=== PATIENT | female | born 1990 | race Caucasian/White ===

== ENCOUNTER 2021-09-04 21:31 | Emergency (ER) | payer OTHER, SELFPAY ==
--- NOTE | ~2021-09-04 | XR_ITS ---
EXAMINATION: XR foot LT min 3V, XR ankle LT 2V CLINICAL INFORMATION: Reason for Exam foot COMPARISON: None. TECHNIQUE: AP, oblique and lateral views of the left foot AP and oblique views of the left ankle FINDINGS: No acute fracture or dislocation. Ankle mortise is congruent. Talar dome intact. Osseous alignment maintained. Soft tissues unremarkable. No radiopaque foreign body. XR/XR foot LT min 3V IMPRESSION: No acute fracture or dislocation.
--- NOTE | ~2021-09-04 | XR_ITS ---
EXAMINATION: XR foot LT min 3V, XR ankle LT 2V CLINICAL INFORMATION: Reason for Exam foot COMPARISON: None. TECHNIQUE: AP, oblique and lateral views of the left foot AP and oblique views of the left ankle FINDINGS: No acute fracture or dislocation. Ankle mortise is congruent. Talar dome intact. Osseous alignment maintained. Soft tissues unremarkable. No radiopaque foreign body. XR/XR ankle LT 2V IMPRESSION: No acute fracture or dislocation.
[2021-09-04 21:41] VITALS: BP 134/85; PULSE 95; RESP 16; TEMP 36.6; O2SAT 99; BMI 47.9
--- NOTE | 2021-09-04 22:09 | ED.LOWEXIN ---
HPI - Extremity Injury (Lower) General Chief Complaint: Extremity Injury, Lower Stated Complaint: Fall/Foot pain Time Seen by Provider: 09/04/21 22:07 Source: patient Limitations: no limitations History of Present Illness HPI Narrative: This is a 30-year-old female who 1 week ago tonight slipped on her porch and landed funny on her left foot, and since then she has had pain to her left dorsal foot, worse with ambulation, with pain present even at rest while lying down. Patient has had little bit of swelling. She said she tried to get seen this week but was unable to. Pain is moderately severe, aching. She denies any numbness or tingling to her foot or toes. She denies any ankle injury. She denies any other injuries such as head or neck, chest or back. Related Data Allergies Allergy/AdvReac Type Severity Reaction Status Date / Time adhesive Allergy Hives Verified 09/04/21 21:49 apple Allergy Anaphylaxis Verified 09/04/21 21:49 Penicillins Allergy Hives Verified 09/04/21 21:49 Sulfa (Sulfonamide Allergy Hives Verified 09/04/21 21:49 Antibiotics) Review of Systems Musculoskeletal: Musculoskeletal: Reports as per HPI Neurologic: Denies Sensory deficit (Neuro) [facility] Past Medical History Medical History (Updated 09/04/21 @ 23:06 by Jin Trujillo MD) Asthma HTN (hypertension) Qualitative platelet disorder Social History Social History Advance Directives: No Advance Directives Information Provided: No Patient : No Physical Exam Vital Signs: Vital Signs: Last Vital Signs Temp 97.8 F 09/04/21 21:41 Pulse 95 09/04/21 21:41 Resp 16 09/04/21 21:41 BP 134/85 09/04/21 21:41 Pulse Ox 99 09/04/21 21:41 Body Mass Index 47.9 Const: General: no acute distress Orientation/consciousness: patient oriented x3 HENMT: Head: Yes normal to inspection Eyes: General: appearance normal, both eyes and all related structures Neck: Neck: Yes full ROM Resp: Effort & Inspection: normal respiratory effort Auscultation: clear to auscultation bilaterally Cardio: Rate: regular rate Rhythm: regular rhythm Heart sounds: S1 normal heart sound present and S2 normal heart sound present Neuro: General: patient oriented x3 Sensory Exam: No Sensory deficit (Neuro) Extrem: Other: Left dorsal foot with tenderness especially over the 1st metatarsal and medial foot. No tenderness over the lateral foot or over the ankle. No notable swelling or ecchymosis or deformity. Does neurovascular intact. MDM - Extremity Injury (Lower) MDM Narrative Medical decision making narrative: Patient with injury to her left foot a week ago, has been walking on it but has had persistent pain, that she might have injured a tendon, has negative x-rays, some tenderness on exam but no ecchymosis or deformity. Likely sprain/contusion. Recommend using a postop shoe, taking ibuprofen for pain and inflammation, orthopedic follow-up as needed Imaging Data Left foot x-ray: Radiologist's impression: IMPRESSION: No acute fracture or dislocation.? Left ankle x-ray: Radiologist's impression: IMPRESSION: No acute fracture or dislocation.? Discharge Plan Discharge Clinical Impression: Foot sprain Patient Disposition: Home, Self-Care Instructions: Foot Sprain (ED) Additional Instructions: Use ibuprofen for pain, 600 mg (3 of the regular 200 mg tablets) every 6-8 hours with food. Use the postop shoe for ambulation for the next week. Follow-up with orthopedics if you still have ongoing pain after that. Referrals: Rory Billings MD [Physician] - 10 days (as needed) Interventions: ED Discharge Assessment Last Done: 09/04/21 23:28 Discharge Date/Time: 09/04/21 23:30
[2021-09-04] MEDS: Ibuprofen 600 MG TABLET PO (22:49)
== END 2021-09-04 23:30 | disposition home or self-care (01) ==
PROVIDERS: Emergency Provider Emergency Medicine
DX: S93.602A Unspecified sprain of left foot, initial encounter (principal); M79.672 Pain in left foot; W01.0XXA Fall on same level from slipping, tripping and stumbling without subsequent striking against object, initial encounter; Y93.9 Activity, unspecified; Y92.9 Unspecified place or not applicable; Y99.9 Unspecified external cause status; Z79.899 Other long term (current) drug therapy
CPT/HCPCS: 73600; 73630; 99283; 99284

== ENCOUNTER 2022-05-16 18:53 | Emergency (ER) | payer OTHER, SELFPAY ==
--- NOTE | ~2022-05-16 | XR_ITS ---
EXAMINATION: XR KNEE, RIGHT CLINICAL INFORMATION: Twisted right knee. Pain. COMPARISON: None TECHNIQUE: AP, lateral, and both oblique views of the right knee. FINDINGS: Bones and soft tissues are normal. No fracture or joint effusion. Alignment is anatomic. Joint spaces are well maintained. No abnormal soft tissue calcification. XR/XR knee RT 3V IMPRESSION: Normal right knee.
[2022-05-16 19:25] VITALS: BP 164/110; PULSE 123; RESP 18; TEMP 36.6; O2SAT 99; BMI 49.3
[2022-05-16] MEDS: predniSONE 20 MG TABLET 40 MG PO (22:44)
--- NOTE | 2022-05-16 22:46 | ED.LOWEXIN ---
HPI - Extremity Injury (Lower) General Chief Complaint: Extremity Injury, Lower Stated Complaint: knee inj/swollen Time Seen by Provider: 05/16/22 21:25 Source: patient Mode of arrival: ambulatory Limitations: no limitations History of Present Illness HPI Narrative: 31 yold female presents to the ED for right knee pain. Patient states at 2pm a hot dog Fork fell unto her right and cause her right knee to twist into an awkward position. She states ever since having right knee pain. Patient denies hitting head or loss of consciosuness. Patieint denies any other trauma. Related Data Previous Rx's Medication Instructions Recorded oxycodone 5 mg capsule 5 mg PO TID PRN pain 3 days #9 caps 05/16/22 prednisone 20 mg tablet 60 mg PO DAILY 5 days #15 tabs 05/16/22 Allergies Allergy/AdvReac Type Severity Reaction Status Date / Time adhesive Allergy Hives Verified 09/04/21 21:49 apple Allergy Anaphylaxis Verified 09/04/21 21:49 Penicillins Allergy Hives Verified 09/04/21 21:49 Sulfa (Sulfonamide Allergy Hives Verified 09/04/21 21:49 Antibiotics) [facility] Past Medical History Medical History (Updated 05/16/22 @ 22:58 by HIPOLITO Dietz) Asthma HTN (hypertension) Qualitative platelet disorder Social History Social History Advance Directives: No Advance Directives Information Provided: No Physical Exam Vital Signs: Vital Signs: Last Vital Signs Temp 97.8 F 05/16/22 19:25 Pulse 123 H 05/16/22 19:25 Resp 18 05/16/22 19:25 BP 164/110 H 05/16/22 19:25 Pulse Ox 99 05/16/22 19:25 O2 Del Method 05/16/22 19:25 BMI result Body Mass Index 49.3 Const: General: cooperative, healthy appearing, comfortable, no acute distress, well developed, alert, awake and Physically active Orientation/consciousness: patient oriented x3 HEENT: Head: Yes normal to inspection, Yes No palpable skull fracture present, Yes normocephalic, Yes atraumatic, No abrasion, No Acrocyanosis present, No Villareal's sign, No contusion, No cranial bruits, No hematoma, No laceration, No occipital foramen tenderness, No palpable skull fracture, No raccoon eyes, No scalp lesion, No scalp tenderness, No Temporal artery tenderness present and No periorbital ecchymosis Eyes: General: appearance normal, both eyes and all related structures Neck: Neck: Yes normal visual inspection, Yes full ROM, Yes no lymphadenopathy, Yes no meningeal signs, Yes trachea midline, Yes supple, No anterior neck swelling and No tender Chest: Chest palpation & inspection: normal inspection of the chest and normal palpation of entire chest wall Resp: Effort & Inspection: normal respiratory effort and able to speak in complete sentences Auscultation: clear to auscultation bilaterally Cardio: Jugular venous distension: no JVD Heart sounds: S1 normal heart sound present and S2 normal heart sound present GI: Inspection: Yes normal to inspection and No abdominal wall ecchymosis Palpation (GI): Soft to palpation, not firm, nontender, no guarding and not rigid : General: No CVA tenderness and Yes no CVA tenderness Back/Spine/Pelvis: Back: no CVA tenderness, No CVA tenderness and No back tenderness Skin: General skin exam: no rashes or lesions noted and elasticity normal Neuro: General: patient oriented x3, gait normal, no meningeal signs and CN's II-XI intact bilaterally Cranial nerves: Yes CN's II-XII intact bilaterally Extrem: General: Yes normal to inspection and Yes full ROM Knee images: 1. Positive for abrasion. Positive for right medial and lateral knee tenderness on palpation and range of motion. Negative for elasticity. Popliteal pulses intact. Risks of right lower extremity normal. Foot pulses intact. Neuro exam motor exam intact. Psych: Appearance: grossly normal, well kempt and not disheveled Course Course Course Narrative: Right knee x-ray ordered. Reevaluation(s) Reevaluation #1: Knee x-ray normal. Due to history of right knee meniscus tear patient informed to follow-up primary care provider and again MRI to make sure there is no meniscus tear. Patient states up-to-date with Tdap. Patient placed in knee wrap and crutches. Patient will be discharged with narcotics due to patient not able to take NSAIDs due to platelet disorder. Time: 22:53 MDM - Extremity Injury (Lower) MDM Narrative Medical decision making narrative: Right knee sprain. Abrasion Discharge Plan Discharge Clinical Impression: Knee sprain, Abrasion Patient Disposition: Home, Self-Care Instructions: Knee Sprain (ED), Abrasion (ED), R.I.C.E. Treatment (ED) Additional Instructions: Return to the ED any knee swelling, redness, hotness, pus discharge from wound, fever, chills, leg swelling calf pain, bluish black discoloration of lower extremity, or any other concerning symptoms. Recommend follow-up with primary care provider for MRI to evaluate for possible meniscus tear due to history of meniscus tear in the past in the same knee. Prescriptions: New prednisone 20 mg tablet 60 mg PO DAILY 5 Days Qty: 15 0RF oxycodone 5 mg capsule 5 mg PO TID PRN (Reason: pain) 3 Days Qty: 9 0RF Rx Instructions: Partial Fill upon patient request. Stand Alone Forms: Work/School Release Interventions: ED Discharge Assessment Last Done: 05/16/22 23:05 Discharge Date/Time: 05/16/22 23:05 Print Language: Moroccan
== END 2022-05-16 23:05 | disposition home or self-care (01) ==
PROVIDERS: Emergency Provider Internal Medicine
DX: S83.91XA Sprain of unspecified site of right knee, initial encounter (principal); S80.211A Abrasion, right knee, initial encounter; X50.1XXA Overexertion from prolonged static or awkward postures, initial encounter; Y93.89 Activity, other specified; Y92.009 Unspecified place in unspecified non-institutional (private) residence as the place of occurrence of the external cause; Y99.9 Unspecified external cause status
CPT/HCPCS: 73562; 99282; 99283

== ENCOUNTER 2023-01-27 18:32 | Emergency (ER) | payer OTHER, SELFPAY ==
--- NOTE | ~2023-01-27 | XR_ITS ---
EXAMINATION: XR HAND, LEFT CLINICAL INFORMATION: Pain in the fifth finger. COMPARISON: None available. TECHNIQUE: PA, lateral, and oblique views of the left hand. FINDINGS: The bones and soft tissues are normal. No fracture. Alignment is anatomic. Joint spaces are maintained. No erosions or soft tissue calcifications. XR/XR hand LT 2V IMPRESSION: Normal left hand.
--- NOTE | 2023-01-27 18:54 | ED.GENADULT ---
HPI - General Adult General Chief complaint: Extremity Injury, Upper Stated complaint: finger discoloration/No inj Time Seen by Provider: 01/27/23 19:03 Source: patient Mode of arrival: ambulatory Limitations: no limitations History of Present Illness HPI narrative: Patient is a 32 year old assigned female at with no reported medical history presenting to the emergency department today with a bruised left 5th finger. Patient states that she was sitting at her desk when her left 5th finger randomly started to bruise. Patient states that this has happened to her thumb previously but it has been years. Patient denies any dizziness, lightheadedness, abdominal pain, nausea, vomiting, fever, chills, blurry vision, double vision, loss of vision, chest pain, difficulty breathing, shortness of breath, back pain, night sweats, pain with urination, increased urinary frequency, increased urinary urgency, blood in her urine or stool, syncope or a near syncopal episode, recent trauma or falls, bowel incontinence, bladder incontinence, bowel retention, bladder retention, or any other complaints at this time. Onset (ago): hour(s) Location: left (5th finger) Radiation: non-radiation Severity: mild Relieving factors: none Exacerbating factors: none Associated symptoms: denies other symptoms Treatments prior to arrival: none Related Data Previous Rx's Medication Instructions Recorded oxycodone 5 mg capsule 5 mg PO TID PRN pain 3 days #9 caps 05/16/22 prednisone 20 mg tablet 60 mg PO DAILY 5 days #15 tabs 05/16/22 Allergies Allergy/AdvReac Type Severity Reaction Status Date / Time adhesive Allergy Hives Verified 09/04/21 21:49 apple Allergy Anaphylaxis Verified 09/04/21 21:49 Penicillins Allergy Hives Verified 09/04/21 21:49 Sulfa (Sulfonamide Allergy Hives Verified 09/04/21 21:49 Antibiotics) Review of Systems Constitutional: Constitutional: Reports no additional constitutional complaints, Denies chills, Denies fever(s) and Denies night sweats Eyes: Eyes: Reports no additional eye complaints, Denies blurry vision, Denies change in vision, Denies diplopia, Denies eye discharge, Denies loss of vision and Denies eye pain ENT: Denies dizziness Cardiovascular: Cardiovascular: Reports no additional cardiovascular complaints, Denies chest pain, Denies lightheadedness, Denies Loss of Consciousness and Denies dyspnea Respiratory: Respiratory: Reports no additional respiratory complaints and Denies dyspnea Gastrointestinal: Gastrointestinal: Reports no additional gastrointestinal complaints, Denies abdominal pain, Denies melena, Denies hematochezia, Denies change in bowel habits and Denies change in stool character Genitourinary: Genitourinary: Denies hematuria, Denies urinary frequency, Denies dysuria, Denies urinary incontinence, Denies urinary hesitancy and Denies urinary urgency Musculoskeletal: Musculoskeletal: Reports no additional musculoskeletal complaints, Denies numbness and Denies tingling Comments: left 5th finger bruising Neurologic: Denies dizziness, Denies loss of vision, Denies numbness and Denies tingling Psychiatric: Psychiatric: Reports no additional psychiatric complaints Endocrine: Endocrine: Reports no additional endocrine complaints Hematologic/Lymphatic: Hematologic/Lymphatic: Reports no additional hematologic/lymphatic complaints Allergic/Immunologic: Allergic/Immunologic: Reports no additional allergic/immunologic complaints PMFSH Past Medical History Attestation statement: The following information was validated with the patient. Source: old records reviewed and nursing notes reviewed Medical History Asthma HTN (hypertension) Qualitative platelet disorder Social History Social History Advance Directives: No Advance Directives Information Provided: Yes Physical Exam ED Vital Signs: Vital Signs - 24 hr 01/27/23 18:55 Temperature 97.9 F Pulse Rate 92 Respiratory Rate 16 Blood Pressure 146/86 H Pulse Oximetry 97 Oxygen Delivery Method Room Air BMI result Body Mass Index 47.7 Const General: cooperative, no acute distress, alert and awake Nutritional Appearance: well nourished Orientation/consciousness: patient oriented x3 Limitations: no limitations [facility] Head: Yes normal to inspection and Yes atraumatic Ears: hearing grossly normal bilaterally and external ears normal General nose exam: Normal external nose present, no nasal discharge noted and no epistaxis Face and sinus: Yes normal facial exam, No abrasion and No laceration Mouth: Normal oral and palatal mucosa present, no drooling and no muffled voice Eyes General: appearance normal, both eyes and all related structures Periorbital: periorbital findings normal Eyelids: Yes eyelids normal Conjunctivae: conjunctivae normal Pupils: Equal, round and reactive pupils present EOM: EOMs intact bilaterally Neck Neck: Yes normal visual inspection, Yes full ROM and Yes no lymphadenopathy Chest Chest palpation & inspection: normal inspection of the chest Resp Effort & Inspection: normal respiratory effort and able to speak in complete sentences GI Inspection: Yes normal to inspection Skin Other: bruising along the medial aspect of the left 5th finger Neuro General: patient oriented x3 and moves all extremities Cranial nerves: Yes Equal, round and reactive pupils present Cognition (Neuro): normal cognition Motor exam (neuro): 5/5 motor strength present throughout Sensory Exam: Normal double simultaneous stimulation for sensation Coordination: [id number] test normal Extrem General: Yes full ROM and Yes capillary refill normal Psych Appearance: grossly normal Mental Status: mental status grossly normal Affect: normal affect Attitude: cooperative Thought process: Normal thought process present Thought content: Normal thought content present Insight: Good insight present (Psych) Medical Decision Making Medical Decision Making MDM Narrative: Patient is a 32 year old assigned female at with no reported medical history presenting to the emergency department today with bruising to the left 5th finger. Patient's physical exam showed mild bruising to the medial aspect of the left 5th finger. Patient's left hand x-ray showed no acute process. I explained my physical exam findings as well as all test results to the patient . I answered all questions asked by the patient. I stressed the importance of the patient taking her medication as prescribed. I stressed the importance of the patient following up with her primary care provider. I stressed the importance of the patient returning to the emergency department immediately if her symptoms were to worsen or if she were to develop any dizziness, shortness of breath, difficulty breathing, chest pain, blurry vision, loss of vision, nausea, vomiting, abdominal pain, fever, chills, back pain, or any other complaints. Patient verbalized agreement and understanding with this treatment plan and discharge. Differential Diagnosis Differential Diagnoses: The differential diagnosis associated with the presentation includes raynauds Independent Interpretation I performed an independent interpretation of an: Plain X-Ray Interpretation: My interpretation is in agreement with the radiologist's impression of this imaging study. EXAMINATION: XR HAND, LEFT CLINICAL INFORMATION: Pain in the fifth finger.? COMPARISON: None available.? TECHNIQUE: PA, lateral, and oblique views of the left hand. FINDINGS: The bones and soft tissues are normal. No fracture. Alignment is anatomic. Joint spaces are maintained. No erosions or soft tissue calcifications.? XR/XR hand LT 2V IMPRESSION: Normal left hand. Dictated By: Chuy Lopez MD Signed By: Electronically signed by Chuy Lopez MD 01/27/232024 Discharge Plan Discharge Clinical Impression: Achenbach's syndrome Patient Disposition: Home, Self-Care Additional Instructions: These episodes are likely to continue happening at variable intervals. It could be days, weeks, months, or even years before the next event. Follow up with your primary care provider. Return to the emergency department immediately if your symptoms worsen or if you develop any dizziness, shortness of breath, difficulty breathing, chest pain, blurry vision, loss of vision, nausea, vomiting, abdominal pain, fever, chills, back pain, or any other complaints. Prescriptions: No Action prednisone 20 mg tablet 60 mg PO DAILY 5 Days Qty: 15 0RF oxycodone 5 mg capsule 5 mg PO TID PRN (Reason: pain) 3 Days Qty: 9 0RF Rx Instructions: Partial Fill upon patient request. Referrals: [facility] Family Medicine [Provider Group] (Call to establish and follow up with a primary care provider. If you already have a primary care provider, please follow up with them.) [facility] [Provider Group] (Call to establish and follow up with a primary care provider. If you already have a primary care provider, please follow up with them.) [facility] [Provider Group] (Call to establish and follow up with a primary care provider. If you already have a primary care provider, please follow up with them.) Stand Alone Forms: Work/School Release Interventions: ED Discharge Assessment Last Done: 01/27/23 19:45 Discharge Date/Time: 01/27/23 19:45 Print Language: Australian
[2023-01-27 18:55] VITALS: BP 146/86; PULSE 92; RESP 16; TEMP 36.6; O2SAT 97; BMI 47.7
== END 2023-01-27 19:45 | disposition home or self-care (01) ==
LOC: HO.ED 19:43
PROVIDERS: Emergency Provider Emergency Medicine
DX: M79.645 Pain in left finger(s) (principal); Z79.899 Other long term (current) drug therapy
CPT/HCPCS: 73120; 99282; 99283

== ENCOUNTER → 2023-05-18 10:06 | Outpatient (BNVA) | payer OTHER, SELFPAY | PROVIDERS: Visit Provider Physician Assistant Surgical ==

== ENCOUNTER 2023-06-15 12:43 | Outpatient (AMB) | payer OTHER, SELFPAY ==
--- NOTE | 2023-06-15 12:53 | A.OFFVIS_ITS ---
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 Her goal is to feel healthier. She reports first being concerned about her weight since childhood. DENNIS 5, Has therapist sees every 2-3 weeks and psychiatric provider. . She has tried multiple methods of weight loss including diets and exercise since childhood without permanent results. She lives with [facility]. She works 5 days per week from 9a - 5pm Her best friend had surgery with us recently. She wakes at: 7;15 am, weekends 10am, bed at 9pm. Takes her a long time to fall asleep, and i f wakes up difficulty falling back to sleep. Believes she sleeps on average 4-5 hours. Breakfast: 8 am decaf coffee - creamer. skips 3-4 days. 8am - DD bagel with cream cheese. Lunch: 12 - 1:30 pm - leftovers. water or [employer] Dinner: 5-7pm - pasta, meat and vegetables (daily). water After dinner: eats in the middle of the night when she can't fall asleep - crackers, rice cakes. Other snacks: not on work days. Binge snacker - multiple times per day. Liquids: 1-2 soda per week. No fruit juice, Alcohol intake: none, tobacco: none, marijuana: none Exercise: gym - now restarting. treadmill in past for 300 calories in 1 hour. Last mammogram: never Last pap smear: up to mariely control method: IUD DENNIS:5 ESS:14 GERD:0 QOL:123 PFSH Medical History (Updated 06/15/23 @ 13:33 by Natalie Coates PA-C) Asthma HTN (hypertension) Qualitative platelet disorder Surgical History History of placement of ear tubes Hx of adenoidectomy Hx of eye surgery Hx of knee surgery Hx of tonsillectomy Hx of wisdom tooth extraction Family History Mother Hypertension Heart problem Borderline personality disorder PTSD (post-traumatic stress disorder) Depression Anxiety Father Depression Anxiety Sister No problems noted. Sister Asthma OCD (obsessive compulsive disorder) Depression Anxiety Brother Anxiety Depression Tourette's Brother Anxiety Depression Social History (Updated 05/18/23 @ 10:33 by Deandra Justice [facility]) Alcohol intake: never Patient Tobacco Use Status: Never used Tobacco Physical Exam Const General: cooperative, no acute distress and well developed Nutritional Appearance: obese Orientation/consciousness: patient oriented x3 HEENT Other: erythema both cheeks Head: Yes normal to inspection Neck Neck: Yes normal visual inspection Thyroid: Thyroid normal Resp Effort & Inspection: normal respiratory effort Auscultation: clear to auscultation bilaterally Cardio Rate: regular rate Rhythm: regular rhythm Heart sounds: S1 normal heart sound present, S2 normal heart sound present and no murmurs GI Inspection: No distended and Yes obesity Palpation (GI): Soft to palpation, nontender and no guarding Skin General skin exam: no rashes or lesions noted and other (warm and dry) Wounds: no wounds Hair: normal Neuro General: patient oriented x3 Extrem General: Yes no pedal edema and Yes no calf tenderness Psych Attitude: cooperative Thought process: Normal thought process present Thought content: Normal thought content present Insight: Good insight present (Psych) Judgement: Good judgement present (Psych) Assessment & Plan Assessment & Plan (1) Morbid obesity: Code(s): E66.01 - Morbid (severe) obesity due to excess calories Plan: This is a 32 yo woman with morbid obesity and likely KELSEY, who will start SWL program to prepare for bariatric surgery. Blood work, h pylori , CXR, ECG, Abd ULS and UGI have been ordered. She is being scheduled for RD and BH initial consultations. She will start SWL classes and watch at 3 classes before her next appt with Joseline. Pt has alot of night eating behaviors along with multiple episodes of waking - will check SS for KELSEY. We discussed different coping mechanisms for non- food coping mechansisms during the night. She will make a list for herself. 1. Adequate sleep of 7-8 hours per night discussed, see above 2. Healthy meal plan - st All meals/MR's need to take 20 minutes to complete decaf coffee with a few ounces of protein shake 9 am - 30 gram shake 12 pm - bar or yogurt 3 pm- shake 6 pm- dinner of 6 oz lean protein, 8 oz vegetable, 1 serving fruit 8pm - bar in 10 pieces Exercise - Cardio 4 d week = treadmill at speed 2.5, incline 2-7- to burn 350 calories 3 d/ wk - 20/20/40 lbs The importance of avoiding and breast feeding for at least 18 months after bariatric surgery was discussed in the information session and was reinforced today. Pt will purchase body composition analyzer (recommended list given to patient) and weight herself weekly. Next appt with me in 3 weeks. Text me with any questions and weekly weights. Patient is morbidly obese and is not considered stable at this time.?I spent a total of 60 minutes reviewing/updating records, examining the patient and counseling the patient on weight management as detailed above. (2) HTN (hypertension): Code(s): I10 - Essential (primary) hypertension (3) Asthma: Code(s): J45.909 - Unspecified asthma, uncomplicated (4) PTSD (post-traumatic stress disorder): Code(s): F43.10 - Post-traumatic stress disorder, unspecified (5) Depression with anxiety: Code(s): F41.8 - Other specified anxiety disorders (6) Daytime somnolence: Code(s): R40.0 - Somnolence (7) Eczema: Code(s): L30.9 - Dermatitis, unspecified Orders: Orders Vitamin B12 and Folate Today E66.01 - Morbid (severe) obesity due to excess calories, I10 - Essential (primary) hypertension, J45.909 - Unspecified asthma, uncomplicated, R40.0 - Somnolence, Z01.818 - Encounter for other preprocedural examination Comprehensive Met. Panel Today E66.01 - Morbid (severe) obesity due to excess calories, I10 - Essential (primary) hypertension, J45.909 - Unspecified asthma, uncomplicated, R40.0 - Somnolence, Z01.818 - Encounter for other preprocedural examination C Reactive Protein Today E66.01 - Morbid (severe) obesity due to excess calories, I10 - Essential (primary) hypertension, J45.909 - Unspecified asthma, uncomplicated, R40.0 - Somnolence, Z01.818 - Encounter for other preprocedural examination Ferritin Today E66.01 - Morbid (severe) obesity due to excess calories, I10 - Essential (primary) hypertension, J45.909 - Unspecified asthma, uncomplicated, R40.0 - Somnolence, Z01.818 - Encounter for other preprocedural examination Hemoglobin A1c Today E66.01 - Morbid (severe) obesity due to excess calories, I10 - Essential (primary) hypertension, J45.909 - Unspecified asthma, uncomplicated, R40.0 - Somnolence, Z01.818 - Encounter for other preprocedural examination Insulin Today E66.01 - Morbid (severe) obesity due to excess calories, I10 - Essential (primary) hypertension, J45.909 - Unspecified asthma, uncomplicated, R40.0 - Somnolence, Z01.818 - Encounter for other preprocedural examination IRON PROFILE Today E66.01 - Morbid (severe) obesity due to excess calories, I10 - Essential (primary) hypertension, J45.909 - Unspecified asthma, uncomplicated, R40.0 - Somnolence, Z01.818 - Encounter for other preprocedural examination Lipid Panel Today E66.01 - Morbid (severe) obesity due to excess calories, I10 - Essential (primary) hypertension, J45.909 - Unspecified asthma, uncomplicated, R40.0 - Somnolence, Z01.818 - Encounter for other preprocedural examination PTHI Today E66.01 - Morbid (severe) obesity due to excess calories, I10 - Essential (primary) hypertension, J45.909 - Unspecified asthma, uncomplicated, R40.0 - Somnolence, Z01.818 - Encounter for other preprocedural examination TSH reflex Free T4 Today E66.01 - Morbid (severe) obesity due to excess calories, I10 - Essential (primary) hypertension, J45.909 - Unspecified asthma, uncomplicated, R40.0 - Somnolence, Z01.818 - Encounter for other preprocedural examination Vitamin A Today E66.01 - Morbid (severe) obesity due to excess calories, I10 - Essential (primary) hypertension, J45.909 - Unspecified asthma, uncomplicated, R40.0 - Somnolence, Z01.818 - Encounter for other preprocedural examination Vitamin B1 Today E66.01 - Morbid (severe) obesity due to excess calories, I10 - Essential (primary) hypertension, J45.909 - Unspecified asthma, uncomplicated, R40.0 - Somnolence, Z01.818 - Encounter for other preprocedural examination Vitamin D 25-OH Total Today E66.01 - Morbid (severe) obesity due to excess calories, I10 - Essential (primary) hypertension, J45.909 - Unspecified asthma, uncomplicated, R40.0 - Somnolence, Z01.818 - Encounter for other preprocedural examination Zinc Today E66.01 - Morbid (severe) obesity due to excess calories, I10 - Essential (primary) hypertension, J45.909 - Unspecified asthma, uncomplicated, R40.0 - Somnolence, Z01.818 - Encounter for other preprocedural examination ECG 12 lead EKG Today E66.01 - Morbid (severe) obesity due to excess calories, I10 - Essential (primary) hypertension, J45.909 - Unspecified asthma, uncomplicated, R40.0 - Somnolence, Z01.818 - Encounter for other preprocedural examination FL upper GI w air Today E66.01 - Morbid (severe) obesity due to excess calories, I10 - Essential (primary) hypertension, J45.909 - Unspecified asthma, uncomplicated, R40.0 - Somnolence, Z01.818 - Encounter for other preprocedural examination Complete Blood Count Auto Diff Today E66.01 - Morbid (severe) obesity due to excess calories, I10 - Essential (primary) hypertension, J45.909 - Unspecified asthma, uncomplicated, R40.0 - Somnolence, Z01.818 - Encounter for other preprocedural examination RT home sleep study Today E66.01 - Morbid (severe) obesity due to excess calories, I10 - Essential (primary) hypertension, J45.909 - Unspecified asthma, uncomplicated, R40.0 - Somnolence, Z01.818 - Encounter for other preprocedural examination H Pylori Breath Test Today E66.01 - Morbid (severe) obesity due to excess calories, I10 - Essential (primary) hypertension, J45.909 - Unspecified asthma, uncomplicated, R40.0 - Somnolence, Z01.818 - Encounter for other preprocedural examination US abdomen comp w elastography Today E66.01 - Morbid (severe) obesity due to excess calories, I10 - Essential (primary) hypertension, J45.909 - Unspecified asthma, uncomplicated, R40.0 - Somnolence, Z01.818 - Encounter for other preprocedural examination XR chest 2V Today E66.01 - Morbid (severe) obesity due to excess calories, I10 - Essential (primary) hypertension, J45.909 - Unspecified asthma, uncomplicated, R40.0 - Somnolence, Z01.818 - Encounter for other preprocedural examination Referrals Behavioral Health Referral E66.01 - Morbid (severe) obesity due to excess calories, I10 - Essential (primary) hypertension, J45.909 - Unspecified asthma, uncomplicated, R40.0 - Somnolence, Z01.818 - Encounter for other preprocedural examination Nutrition/Dietitian Referral E66.01 - Morbid (severe) obesity due to excess calories, I10 - Essential (primary) hypertension, J45.909 - Unspecified asthma, uncomplicated, R40.0 - Somnolence, Z01.818 - Encounter for other preprocedural examination Coding Level of Care Code New Pt Level 5 (72620) Diagnoses Morbid obesity E66.01 HTN (hypertension) I10 Asthma J45.909 PTSD (post-traumatic stress disorder) F43.10 Depression with anxiety F41.8 Daytime somnolence R40.0 Eczema L30.9
[2023-06-15 13:00] VITALS: BP 153/83; PULSE 93; TEMP 37.1; O2SAT 95; BMI 48.9
== END 2023-06-15 14:08 | disposition home or self-care (01) ==
PROVIDERS: Visit Provider Physician Assistant
DX: E66.01 Morbid (severe) obesity due to excess calories (principal); Z68.42 Body mass index [BMI] 45.0-49.9, adult; I10 Essential (primary) hypertension; L30.9 Dermatitis, unspecified
CPT/HCPCS: 99205

== ENCOUNTER 2023-06-15 12:43 | Outpatient (REF) | payer OTHER, SELFPAY ==
[2023-06-18 11:43] LABS: H Pylori Breath Test Negative (Negative)
== END 2023-06-15 12:44 | disposition home or self-care (01) ==
LOC: HO.LNP 12:43
PROVIDERS: Visit Provider Physician Assistant
DX: Z01.818 Encounter for other preprocedural examination (principal); E66.01 Morbid (severe) obesity due to excess calories; I10 Essential (primary) hypertension; J45.909 Unspecified asthma, uncomplicated; R40.0 Somnolence
CPT/HCPCS: 83013; 99202; 99211

== ENCOUNTER 2023-06-30 11:29 | Outpatient (REF) | payer OTHER, SELFPAY ==
--- NOTE | ~2023-06-30 | US_ITS ---
EXAMINATION: US COMPLETE ABDOMEN WITH LIVER ELASTOGRAPHY CLINICAL INFORMATION: Morbid obesity. COMPARISON: None available. TECHNIQUE: Real-time imaging of the abdominal viscera. Noninvasive ultrasound liver fibrosis assessment is performed using Lala ElastPQ point quantification shear wave elastography (2D-SWE) with a C5-2 MHz transducer. Multiple elastography samples are obtained. FINDINGS: PANCREAS: Largely obscured by overlapping bowel gas. ABDOMINAL AORTA: The proximal, middle, and distal aortic segments are normal in caliber. INFERIOR VENA CAVA: Visualized portions are normal. LIVER: There is hepatomegaly. The liver demonstrates normal contour and increased echogenicity. No focal lesion or intrahepatic biliary duct dilatation. The right lobe measures 19.3 cm in length. The left lobe measures 15.4 cm in length. Portal flow is towards the liver (hepatopetal). Shear wave liver elastography median stiffness is 1.62 m/s (reference: normal median stiffness is 1.3 m/s or less). IQR/median stiffness to assess sampling precision is 0.14 (reference: good quality data set is IQR/median stiffness of 0.15 or less). GALLBLADDER: Normal. The gallbladder is physiologically distended without evidence of stones, sludge, polyps, wall thickening or pericholecystic fluid. COMMON BILE DUCT: Normal in caliber measuring 0.5 cm in diameter. RIGHT KIDNEY: Normal. No hydronephrosis. No renal calculi or focal parenchymal lesions. The kidney measures 12.8 cm in maximum dimension. LEFT KIDNEY: Normal. No hydronephrosis. No renal calculi or focal parenchymal lesions. The kidney measures 11.2 cm in maximum dimension. SPLEEN: Normal. The spleen measures 10.3 cm in maximum dimension. FREE FLUID: None. US/US abdomen comp w elastography IMPRESSION: 1. There is generalized increase in hepatic echotexture, consistent with fatty infiltration or hepatocellular disease. Please correlate clinically. No focal hepatic mass or intrahepatic biliary dilatation is seen. 2. There is hepatomegaly. 3. Liver elastography: In the absence of other known clinical signs, measurements rule out compensated advanced chronic liver disease. If there are known clinical signs, further testing may be needed for confirmation. 4. Technically limited ultrasound examination of the pancreas. REFERENCE: Society of Radiologists in Ultrasound Liver Stiffness Thresholds (2020): LIVER STIFFNESS THRESHOLDS: *Liver Stiffness equal or less than 1.3 m/s: High probability of being normal. *Liver Stiffness less than 1.7 m/s: In the absence of other known clinical signs, rules out compensated advanced chronic liver disease. *Liver Stiffness 1.7-2.1 m/s: Suggestive of compensated advanced chronic liver disease but need further test for confirmation. *Liver Stiffness over 2.1 m/s: Rules in compensated advanced chronic liver disease. *Liver Stiffness over 2.4 m/s: Suggestive of clinically significant portal hypertension. QUALITY OF DATA SET: *IQR/Median value equal or less than 0.15 implies a quality data set. *IQR/Median value over 0.15 implies a poor quality data set. SIGNIFICANT CHANGE FROM PRIOR EXAM: Significant change if liver stiffness measurement is 10% or greater from prior exam. OTHER CONSIDERATIONS: The stage of liver fibrosis may be overestimated in the setting of acute hepatitis, liver inflammation, elevated liver function tests, hepatic vascular congestion, obstructive cholestasis, non-fasting state, and infiltrative diseases such as amyloidosis and lymphoma. In some patients with NAFLD, the liver stiffness thresholds for compensated advanced chronic liver disease may be lower. In causes other than viral hepatitis and NAFLD, liver stiffness thresholds are not well established.
== END 2023-06-30 11:30 | disposition home or self-care (01) ==
LOC: HO.US 11:29
PROVIDERS: Visit Provider Physician Assistant
DX: Z01.818 Encounter for other preprocedural examination (principal); E66.01 Morbid (severe) obesity due to excess calories; I10 Essential (primary) hypertension
CPT/HCPCS: 76705; 76981

== ENCOUNTER 2023-07-04 09:21 | Outpatient (REF) | payer OTHER, SELFPAY ==
--- NOTE | ~2023-07-04 | FL_ITS ---
EXAMINATION: XR FLUOROSCOPY UPPER GI WITH AIR CLINICAL INFORMATION: Preoperative bariatric surgery. COMPARISON: None relevant. TECHNIQUE: Standard technique air contrast upper GI examination was performed with thick and thin barium and effervescent granules. Numerous fluoroscopic spot images were obtained. FINDINGS: The esophagus has normal caliber and contour. There is no mucosal abnormality, mass, or stricture. No evidence of hiatus hernia or GE reflux was evident. Stomach demonstrates normal contour and fold appearance. No ulceration or mass identified. Images of the duodenal bulb and sweep appear normal with normal fold patterns. The proximal small bowel has a normal jejunal fold pattern. There was no delay of contrast passage. FLUOROSCOPY TIME: 2.6 minutes 23 spot images obtained. DOSE AREA PRODUCT: 45.203 uGy-m2 (microgray-meter squared) FL/FL upper GI w air IMPRESSION: Normal upper GI examination.
--- NOTE | ~2023-07-04 | XR_ITS ---
EXAMINATION: XR CHEST CLINICAL INFORMATION: Obesity COMPARISON: None available. TECHNIQUE: 2 views of the chest were obtained. FINDINGS: No significant abnormality is noted involving the heart, lungs, mediastinum, bony thorax or soft tissues. XR/XR chest 2V IMPRESSION: Unremarkable examination.
== END 2023-07-04 09:22 | disposition home or self-care (01) ==
LOC: HO.XRAY 09:21
PROVIDERS: Visit Provider Physician Assistant
DX: Z01.818 Encounter for other preprocedural examination (principal); E66.01 Morbid (severe) obesity due to excess calories; I10 Essential (primary) hypertension; J45.909 Unspecified asthma, uncomplicated; R40.0 Somnolence
CPT/HCPCS: 71046; 74246

== ENCOUNTER → 2023-07-04 09:23 | Outpatient (BNV) | payer OTHER, SELFPAY | PROVIDERS: Visit Provider Radiology Diagnostic Radiology | DX: E66.01 Morbid (severe) obesity due to excess calories (principal) | CPT/HCPCS: 74246 ==

== ENCOUNTER 2023-07-06 16:43 | Outpatient (AMB) | payer OTHER, SELFPAY ==
--- NOTE | 2023-07-06 15:34 | A.OFFVIS_ITS ---
Intake Intake Visit Reasons: VIDEO F/U SWL Allergies adhesive Allergy (Verified 06/15/23 12:58) Hives Penicillins Allergy (Verified 06/15/23 12:58) Hives Sulfa (Sulfonamide Antibiotics) Allergy (Verified 06/15/23 12:58) Hives HPI HPI Comments History of Present Illness Details This is the patients second appt for SWL. Starting weight was 312.4 lbs. Has not weighted herself in 10 days due to moving, and scale packed away. Meal plan: 8am - coffee with premeir shake in it 9am - finish the shake 12 farhat - yogurt or drinkable yogurt 3pm - mostly skips this shake 6:30 pm - chicken or ground turkey and vegetables with Mrs Stokes sometimes has something after dinner Exercise plan: hasn't started because she fell down the stairs Pre op work up completed as follows: SWL classes - BH appts - Dian 07/21 appts - not scheduled H pylori - negative Labs and ECG - not done yet CXR - negative UGI - normal ULS- fatty liver, hepatomegaly - R 19.3, L 15.4 cms - 08/07 [facility] Medical History (Updated 06/15/23 @ 13:33 by Natalie Coates PA-C) Asthma HTN (hypertension) Qualitative platelet disorder Surgical History History of placement of ear tubes Hx of adenoidectomy Hx of eye surgery Hx of knee surgery Hx of tonsillectomy Hx of wisdom tooth extraction Family History Mother Hypertension Heart problem Borderline personality disorder PTSD (post-traumatic stress disorder) Depression Anxiety Father Depression Anxiety Sister No problems noted. Sister Asthma OCD (obsessive compulsive disorder) Depression Anxiety Brother Anxiety Depression Tourette's Brother Anxiety Depression Social History Alcohol intake: never Patient Tobacco Use Status: Never used Tobacco Assessment & Plan Assessment & Plan (1) Morbid obesity: Code(s): E66.01 - Morbid (severe) obesity due to excess calories Plan: Pt will weigh herself and text me the result. Needs to not skip meals and MR's - must have 2 shakes, 1 MR and 1 meal per day. Must start exercising - for now TBP sitting videos 4-5 d/ week until her foot completely heals. Must start to watch classes and finish before appt with Joseline - which is being rescheduled now. Will get labs and ECG done this week. Next appt with me in 3 weeks. Patient is still morbidly obese and is not considered stable at this time. I spent 30 minutes in total speaking with the patient via video conference counseling , reviewing records and charting in patients chart. . (2) Daytime somnolence: Code(s): R40.0 - Somnolence Plan: SS 08/07 Telehealth Telehealth Location of provider rendering services: practice address Location of patient: address on file Telehealth method: video Patient verbally consented to treatment: Yes Patient verbally consented to billing insurance company: Yes Patient informed of any privacy concerns related to visit: Yes Coding Level of Care Code Tele Est Pt Level 4 (77499) Diagnoses Morbid obesity E66.01 Daytime somnolence R40.0
== END 2023-07-06 16:56 | disposition home or self-care (01) ==
LOC: HO.HBS 16:43
PROVIDERS: Visit Provider Physician Assistant
DX: E66.01 Morbid (severe) obesity due to excess calories (principal); Z68.42 Body mass index [BMI] 45.0-49.9, adult; R40.0 Somnolence
CPT/HCPCS: 99214

== ENCOUNTER → 2023-07-06 16:43 | Outpatient (BNVA) | payer OTHER, SELFPAY | PROVIDERS: Visit Provider Physician Assistant ==

== ENCOUNTER 2023-12-19 12:02 | Emergency (ER) | payer OTHER, SELFPAY ==
--- NOTE | ~2023-12-19 | US_ITS ---
EXAMINATION: US ABDOMEN LIMITED CLINICAL INFORMATION: Right upper quadrant pain. COMPARISON: None available. TECHNIQUE: Real-time imaging of the right upper quadrant abdominal viscera. FINDINGS: PANCREAS: Normal head and body, the tail is obscured by bowel gas. LIVER: The liver is normal in size. The liver contour is normal. There is slight diffuse increased liver parenchymal echogenicity, consistent with mild hepatic steatosis. No focal hepatic lesion. There is no intrahepatic biliary duct dilatation seen. GALLBLADDER: Normal. The gallbladder is physiologically distended without evidence of stones, sludge, polyps, wall thickening or pericholecystic fluid. The patient reports tenderness in the area of the gallbladder, however, there are no findings to suggest cholecystitis. COMMON BILE DUCT: Normal in caliber measuring 5 cm in diameter. RIGHT KIDNEY: Normal. No hydronephrosis. No renal calculi or focal parenchymal lesions. The kidney measures 13.9 cm in maximum dimension. FREE FLUID: None. US/US abdomen limited IMPRESSION: 1. Mild hepatic steatosis. 2. The patient reports tenderness in the area of the gallbladder, however, there are no findings to suggest cholecystitis.
--- NOTE | ~2023-12-19 | US_ITS ---
EXAMINATION: US , LIMITED CLINICAL INFORMATION: Abdominal pain. 4 months . COMPARISON: None available. TECHNIQUE: Transabdominal scanning of the pelvis was performed. FINDINGS: There is a single live intrauterine with a breech lie, anterior placenta and adequate amniotic fluid. movement and cardiac activity are seen seen. heart rate is 153 bpm. There is a normal placental attachment. LMP is 08/25/2023. Based on today's measurements, estimated gestational age 16 weeks 4 days which corresponds to the estimated gestational age based on the patient's LMP. Estimated date of delivery is 05/31/2024. Estimated weight is 5 ounces (146 g) which is in the 18th percentile. The cervix is long and closed. US/US OB limited IMPRESSION: Single live intrauterine with estimated gestational age of 16 weeks 4 days. This corresponds to an estimated of delivery of 05/31/2024. Normal movement and cardiac activity are observed.
[2023-12-19 12:32] VITALS: BP 133/85; PULSE 96; RESP 20; TEMP 37; O2SAT 96; BMI 49.6
--- NOTE | 2023-12-19 12:33 | ED_ITS ---
HPI - Abdominal Pain General Chief Complaint: Abdominal Pain Stated Complaint: R Side Pain Vomiting 16 Wks Preg Time Seen by Provider: 12/19/23 21:30 Source: patient Mode of arrival: ambulatory History of Present Illness HPI narrative: 33-year-old female who presents, at approximately 16 weeks, states that on Monday she began having right upper quadrant pain that radiates into the back with vomiting and diarrhea and states that the vomiting has persisted. Patient states that she is currently followed up at [facility], she states that she presented to OB floor and was informed that this was not a issue in that she should seek help at a regular ER. She denies any vaginal bleeding or unexplained loss of fluid she has right upper quadrant pain. Related Data Home Medications Medication Instructions Recorded Confirmed dextroamphetamine-amphetamine 5 mg 5 mg PO DAILY 05/18/23 tablet (Adderall) doxycycline hyclate 20 mg tablet 20 mg PO BID 05/18/23 fluticasone propionate 50 2 spray intranasal DAILY 05/18/23 mcg/actuation nasal spray,suspension (Children's Flonase Allergy Relief) levocetirizine 5 mg tablet (Xyzal) 5 mg PO DAILY 05/18/23 Allergies Allergy/AdvReac Type Severity Reaction Status Date / Time adhesive Allergy Hives Verified 12/19/23 12:35 Penicillins Allergy Hives Verified 12/19/23 12:35 Sulfa (Sulfonamide Allergy Hives Verified 12/19/23 12:35 Antibiotics) Review of Systems Review of Systems Pertinent positives and negatives as stated in HPI PMFSH Past Medical History Source: nursing notes reviewed Medical History Qualitative platelet disorder HTN (hypertension) Asthma Surgical History Hx of eye surgery Hx of knee surgery Hx of wisdom tooth extraction Hx of adenoidectomy Hx of tonsillectomy History of placement of ear tubes Family History Family History Mother Hypertension Heart problem Borderline personality disorder PTSD (post-traumatic stress disorder) Depression Anxiety Father Depression Anxiety Sister No problems noted. Sister Asthma OCD (obsessive compulsive disorder) Depression Anxiety Brother Anxiety Depression Tourette's Brother Anxiety Depression Social History Social History Alcohol intake: never Patient Tobacco Use Status: Never used Tobacco Smoked in Last 30 Days: No Use of substances other than those prescribed or required for medical reasons: No Advance Directives: No Patient : Yes Physical Exam ED Vital Signs: Vital Signs - 24 hr 12/19/23 12:32 12/19/23 21:30 12/19/23 22:00 Temperature 98.6 F Pulse Rate 96 94 90 Respiratory Rate 20 18 18 Blood Pressure 133/85 138/79 142/78 H Pulse Oximetry 96 99 98 Oxygen Delivery Method Room Air Room Air BMI result Body Mass Index 49.6 VITAL SIGNS: Reviewed. GENERAL: Elevated BMI, Well developed, well nourished, in no acute distress. HEAD: Normocephalic/atraumatic EYES: PERRLA, EOMI EARS: Ext canals without abnormality NOSE: Nares patent bilateral OROPHARYNX: no oral lesions noted, posterior pharynx clear NECK: Supple, no adenopathy LUNGS: Normal breath sounds. No adventitious sounds or accessory muscle use. SpO2<99> CARDIOVASCULAR: Regular rate and rhythm without noted murmurs, no JVD or lower extremity edema. ABDOMEN: Soft, right upper quadrant pain,, non-distended with bowel sounds. MUSCULOSKELETAL: No tenderness, deformities, or effusions noted on gross inspection. EXTREMITIES: No cyanosis, clubbing or edema. SKIN: Inspection of the skin reveals no rashes NEUROLOGIC: Alert and oriented x 4. Strength and sensation to light touch were grossly intact x 4. Course Course Course Narrative: This is a rapid medical exam. Deferred additional HPI, ROS, PE to primary provider. 33 yo female with history of HTN, platelete disorder, asthma here with complaints of RUQ abdominal pain with radiation to the back with nausea/vomiting/diarrhea since Monday. Currently 4 months . HARMAN 05/31. Followed by [facility]. No vaginal bleeding or lower abdominal pain. Normal to date. Will obtain labs, UA, abdominal US, viral testing. VSS Medical Decision Making Medical Decision Making [facility] Narrative: 2234: 33-year-old female with history and clinical presentation, DDX: Cholecystitis, appendicitis, renal colic and lower clinical suspicion for pancreatitis. I reviewed all investigations and there is a noted leukocytosis with a left shift and no anemia or thrombocytopenia. Chemistry indices are negative for PETEY/electrolyte or liver enzyme derangements. Beta [id number] an Ob ultrasound demonstrates IUP at 16.4 days/FHR-153. Urinalysis is negative UTI or hematuria. Viral testing is negative for COVID-19/influenza. Abdominal ultrasound does not show evidence to suggest acute cholecystitis but clinical exam and history contradict that. Started IV fluids, administered antiemetics as well as initial dose of antibiotics. 2348: I discussed the case with door slinger and they accept the patient in transfer, the accepting physician is Dr Elias. Patient has been informed of all results, findings, and plan. Differential Diagnosis Differential Diagnoses: The differential diagnosis associated with the presentation includes Please see the discussion above Admission/Observation Consideration of admission/observation: Escalation of care including admission/observation considered Please see the discussion above Consult Healthcare Provider Management of the patient was discussed with: Audit Officer Please see the discussion above Lab Data MDM Lab Attestation statement: I reviewed the patient's lab results. Please see the discussion above 12/19/23 13:07 12/19/23 13:07 Labs: Lab Results 12/19/23 12/19/23 Range/Units 13:07 13:08 WBC 14.9 H (4.8-10.8) X10*3/uL RBC 4.38 (4.20-5.50) X10*6/uL Hgb 12.6 (12.0-16.0) g/dl Hct 37.6 (37.0-47.0) % MCV 85.8 (80.0-98.0) fL MCH 28.8 (27.0-33.0) pg MCHC 33.5 (31.0-35.0) g/dl RDW 13.6 (11.0-16.0) % Plt Count 198 (160-400) X10*3/uL MPV 12.3 (9.4-12.3) fL Immature Gran % (Auto) 0.7 H (0.0-0.4) % Neut % (Auto) 79.6 H (45-73) % Lymph % (Auto) 14.7 L (20-40) % Benson % (Auto) 4.0 (2-11) % Eos % (Auto) 0.9 (0-4) % Baso % (Auto) 0.1 (0-2) % Lymph # (Auto) 2.2 (1.2-4.9) X10*3/uL Benson # (Auto) 0.6 (0.1-1.2) X10*3/uL Eos # (Auto) 0.1 (0.0-0.4) X10*3/uL Baso # (Auto) 0.0 (0.0-0.2) X10*3/uL Abs Immat Gran (auto) 0.10 H (0.00-0.03) X10*3/uL Absolute Neuts (auto) 11.9 H (2.0-8.3) x10*3/uL Absolute Nucleated RBC 0.000 (0.0-0.012) X10*3/uL Nucleated RBC % (auto) 0.0 (0.0-0.2) /100WBC Sodium 138 (135-145) mmol/L Potassium 3.7 (3.3-5.1) mmol/L Chloride 104 (96-108) mmol/L Carbon Dioxide 25 (22-29) mmol/L Anion Gap 13 (12-20) BUN 5 L (9-16) mg/dL Creatinine 0.60 (0.5-1.4) mg/dL Estim Creat Clear Calc 202.6 Estimated GFR > 60 Random Glucose 90 (60-115) mg/dL Calcium 9.3 (8.4-10.2) mg/dL Total Bilirubin 0.3 (0.0-1.0) mg/dL Direct Bilirubin 0.1 (0.0-0.5) mg/dL AST 12 (5-31) U/L ALT 13 (0-31) U/L Alkaline Phosphatase 64 (39-117) U/L Total Protein 6.9 (6.5-8.0) g/dL Albumin 3.6 (3.5-5.0) g/dL Beta HCG, Quant 66839 mIU/mL Urine Color Yellow Urine Appearance Clear Urine pH 6.5 (5.0-9.0) Ur Specific [place] 1.015 (1.005-1.025) Urine Protein Negative (Neg-Trace) mg/dL Urine Glucose (UA) Negative (Negative) mg/dL Urine Ketones Negative (Negative) mg/dL Urine Blood Negative (Negative) Urine Nitrite Negative (Negative) Ur Leukocyte Esterase Negative (Negative) Urine Test POSITIVE H (NEGATIVE) COVID-19 (PAKO) Negative (Negative) COVID-19 Clin Com See Note Influenza Type A (GAGE) Negative (Negative) Influenza Type B (GAGE) Negative (Negative) Influenza A & B Note See Note Radiology Impression Discussion of test interpretation with radiology: I have reviewed the radiologist's reading. Radiologist Impression: Please see the discussion above Medications Administered Generic Name Dose Route Start Last Admin Trade Name Freq PRN Reason Stop Dose Admin Ceftriaxone Sodium 1 gm/ 50 mls @ 100 mls/hr 12/19/23 23:27 12/19/23 23:41 Sodium Chloride IV 12/19/23 23:56 100 mls/hr ONCE ONE Administration Discontinued Medications Generic Name Dose Route Start Last Admin Trade Name Freq PRN Reason Stop Dose Admin Sodium Chloride 1,000 mls @ 999 mls/hr 12/19/23 22:15 12/19/23 23:35 Ns IV 12/19/23 23:15 999 mls/hr .Q1H1M YU Administration Ondansetron HCl 4 mg 12/19/23 22:14 12/19/23 23:34 Ondansetron Hcl 4 Mg/2 Ml Vial IVPUSH 12/19/23 22:15 4 mg ONCE ONE Administration Critical Care Time Critical Care Time Critical Care Time: Yes Total Critical Care Time: 45 Attestation: I personally attest to this time spent taking care of the patient. Discharge Plan Discharge Clinical Impression: , Right upper quadrant abdominal pain Patient Disposition: General Acute Hospital Transfer Details: OB Specialty for abd pain Prescriptions: No Action dextroamphetamine-amphetamine [Adderall] 5 mg tablet 5 mg PO DAILY fluticasone propionate [Children's Flonase Allergy Rlf] 50 mcg/actuation spray,suspension 2 spray intranasal DAILY Rx Instructions: administer into each nostril doxycycline hyclate 20 mg tablet 20 mg PO BID levocetirizine [Xyzal] 5 mg tablet 5 mg PO DAILY
[2023-12-19 13:13] LABS: MANUAL DIFF FLAG NO
[2023-12-19 13:15] LABS: Basophils Percent Auto 0.1 % (0-2); Eosinophils Absolute Auto 0.1 X10*3/uL (0.0-0.4); Eosinophils Percent Auto 0.9 % (0-4); Hematocrit 37.6 % (37.0-47.0); Hemoglobin 12.6 g/dl (12.0-16.0); Imm Gran Pct Auto 0.7 % (0.0-0.4); Lymphocytes Absolute Auto 2.2 X10*3/uL (1.2-4.9); Lymphocytes Percent Auto 14.7 % (20-40); Mean Corpuscular HGB Conc 33.5 g/dl (31.0-35.0); Mean Corpuscular Hemoglobin 28.8 pg (27.0-33.0); Mean Corpuscular Volume 85.8 fL (80.0-98.0); Mean Platelet Volume 12.3 fL (9.4-12.3); Monocytes Absolute Auto 0.6 X10*3/uL (0.1-1.2); Neutrophils Absolute Auto 11.9 x10*3/uL (2.0-8.3); Neutrophils Percent Auto 79.6 % (45-73); Platelet Count 198 X10*3/uL (160-400); Red Blood Count 4.38 X10*6/uL (4.20-5.50); Red Cell Distribution Width 13.6 % (11.0-16.0); White Blood Count 14.9 X10*3/uL (4.8-10.8)
[2023-12-19 13:18] LABS: Appearance Urine Clear; Color Urine Yellow; Glucose Urine UA Negative (Negative); Leukocyte Esterase Urine Negative (Negative); Nitrite Urine Negative (Negative); PH 6.5 (5.0-9.0); Specific Gravity - Urine 1.015 (1.005-1.025); Urine Blood Negative (Negative); Urine Ketones Negative (Negative); Urine Protein Negative (Neg-Trace)
[2023-12-19 13:19] LABS: UPreg QC Valid YES; Urine Pregnancy POSITIVE (NEGATIVE)
[2023-12-19 13:34] LABS: COVID-19 Test Negative (Negative); IDNOW Serial# 08D9AD1C; IDNOW Serial# 152EDE1D; Influenza A Negative (Negative); Influenza B2 Negative (Negative)
[2023-12-19 13:58] LABS: Alanine Aminotransferase 13 U/L (0-31); Albumin Level 3.6 g/dL (3.5-5.0); Alkaline Phosphatase 64 U/L (39-117); Anion Gap 13 (12-20); Aspartate Amino Transferase 12 U/L (5-31); Bilirubin Direct 0.1 mg/dL (0.0-0.5); Bilirubin Total 0.3 mg/dL (0.0-1.0); Blood Urea Nitrogen 5 mg/dL (9-16); Calcium 9.3 mg/dL (8.4-10.2); Carbon Dioxide 25 mmol/L (22-29); Chloride 104 mmol/L (96-108); Creatinine Clr Calc Pharmacy 202.6; Estimated Glomerular Filt Rate > 60; Glucose Random 90 mg/dL (60-115); Potassium 3.7 mmol/L (3.3-5.1); Sodium 138 mmol/L (135-145); Total Protein 6.9 g/dL (6.5-8.0)
[2023-12-19 13:59] LABS: HCG Quantitative 13229 mIU/mL
[2023-12-19 21:30] VITALS: BP 138/79; PULSE 94; RESP 18; O2SAT 99
[2023-12-19 22:00] VITALS: BP 142/78; PULSE 90; RESP 18; O2SAT 98
[2023-12-19] MEDS: ondansetron HCL 4 MG/2 ML VIAL IVPUSH (23:34)
[2023-12-19] MEDS: 0.9 % Sodium Chloride 1,000 ML 999 ML IV (23:35)
[2023-12-19] MEDS: cefTRIAXone sodium 1 GM in 0.9 % Sodium Chloride 50 ML IV (23:41)
[2023-12-20] VITALS: BP 140/70; PULSE 81; RESP 18; O2SAT 98
[2023-12-20 00:15] VITALS: BP 119/65; RESP 83; TEMP 36.7; O2SAT 98
[2023-12-20] MEDS: 0.9 % Sodium Chloride 1,000 ML 999 ML IV (00:55)
--- NOTE | 2023-12-20 01:07 | PC.NURSE ---
Second liter of IVF stopped early d/t BLS transport to [facility].
== END 2023-12-20 01:08 | disposition short-term general hospital (02) ==
PROVIDERS: Nurse Practitioner Family; Emergency Provider Student in an Organized Health Care Education/Training Program; PCP Internal Medicine
DX: O26.892 Other specified pregnancy related conditions, second trimester (principal); Z3A.16 16 weeks gestation of pregnancy; R10.11 Right upper quadrant pain; R19.7 Diarrhea, unspecified; Z11.52 Encounter for screening for COVID-19; D72.829 Elevated white blood cell count, unspecified
CPT/HCPCS: 76705; 76815; 80048; 80076; 81003; 81025; 84702; 85025; 87502; 87635; 96361; 96374; 96375; 99285; J0696; J2405

== ENCOUNTER → 2024-09-02 09:28 | Outpatient (BNVA) | payer OTHER, SELFPAY | PROVIDERS: PCP Internal Medicine; Visit Provider Surgery ==

== ENCOUNTER 2024-09-09 08:00 | Outpatient (AMB) | payer OTHER, SELFPAY ==
--- NOTE | 2024-09-09 11:16 | A.OFFVIS_ITS ---
Intake Visit Reasons: TV Re - Est SWL BMI 49.3 Allergies adhesive Allergy (Verified 09/09/24 11:16) Hives Penicillins Allergy (Verified 09/09/24 11:16) Hives Sulfa (Sulfonamide Antibiotics) Allergy (Verified 09/09/24 11:16) Hives Medication List - Last Reconciled 09/09/24 by Greg Robison MD albuterol sulfate 90 mcg/actuation 2 puffs inhalation Q6H PRN ferrous sulfate (Feosol) 40 mg PO DAILY labetalol 600 mg PO TID multivitamin 1 tab PO DAILY HPI HPI TV Re - Est SWL BMI 49.3: Details: Start time: 11.00am, End time: 11.45am ?I spent 40 minutes speaking with the patient on the phone plus an additional 5 minutes reviewing and updating records for a total of 45 minutes HPI Comments Details: Previous weight loss efforts: WMP program Wakes up: 5am, Sleeps: 10pm Breakfast: skips Lunch: 2-3pm (fast food, mac&cheese) Dinner: 7pm (mac and cheese) Snacks: 5pm (chips, popcorn), 9pm (same) Exercise: None Fluids: Coffee: 1 cup/day (oatmilk and creamer), tea: rarely, soda: Gingerale (daily), juice: none, ETOH: none PFSH Medical History (Updated 12/21/23 @ 00:01 by Idania Ruiz) Qualitative platelet disorder HTN (hypertension) Asthma Surgical History Hx of eye surgery Hx of knee surgery Hx of wisdom tooth extraction Hx of adenoidectomy Hx of tonsillectomy History of placement of ear tubes Family History Mother Hypertension Heart problem Borderline personality disorder PTSD (post-traumatic stress disorder) Depression Anxiety Father Depression Anxiety Sister No problems noted. Sister Asthma OCD (obsessive compulsive disorder) Depression Anxiety Brother Anxiety Depression Tourette's Brother Anxiety Depression Social History Alcohol intake: never Patient Tobacco Use Status: Never used Tobacco Telehealth Telehealth Telehealth Platform: Telephone Location of provider rendering services: practice address Location of patient: address on file Patient Identification confirmed using: Name, : Yes Telehealth method: voice only Patient verbally consented to treatment: Yes Patient verbally consented to billing insurance company: Yes Patient informed of any privacy concerns related to visit: Yes Minutes spent on Phone/Video with Pt.: 45 Assessment & Plan Assessment & Plan (1) Morbid obesity: Code(s): E66.01 - Morbid (severe) obesity due to excess calories Category: Medical Plan: 1.? Plan for lap sleeve gastrectomy. If diaphragmatic or ventral hernias are present at time of surgery, these will be repaired laparoscopically as well. Risks and complications include possible conversion to an open procedure, anastomotic leak, bleeding requiring transfusion, small bowel obstruction, , DVT and pulmonary embolism, cardiac, or pulmonary complications, as correction complications such as anastomotic ulcer, insufficient weight loss and vitamin deficiencies. I emphasized the importance of close follow-up, adherence to instructions and good communication. 2. You will receive a link of our software irvin to generate an individualized nutritional and exercise plan specific for you. Please send me a screenshot of the plans you will generate Meal to include lean meat (beef, fish, pork, turkey, chicken), or [place] yogurt, or egg whites, or beans with a salad with olive oil and fruits (berries, pears, apples, kiwi). Avoid salt, breads, potatoes, rice, pasta, desserts. ?3. If you choose shakes, each shake would be drunk slowly, like coffee in a period of 2 hours. ?4. If you choose bars, cut each bar in 4 pieces and eat each piece in 30min ?to make each bar last 2 hours. ?5. I emphasized the importance of measuring accurately the food portion and measure it when serving the food in plate ?6. The meal portions include a specific number of forks of meat and salad. You always eat the meat portion but you can replace up to half of salad/vegetables portion with rice, potatoes or pasta, or a fruit ?if you like. The less you do it the better weight loss will be. ?7. One full-size fork is what it can be scooped on the fork without falling aside and not what can be bit with the fork. Use regular forks like those you find in a typical restaurant. ?8.? Please send me weight measurements as soon as possible and then once a week. Always include your diet and exercise plan. 9. The best choice would be to purchase a stationary bike, elliptical or treadmill at home that can track calories. Let me know if you do so I can give you an exercise plan. ?10.?It is important of avoiding and for at least 18 months postoperatively and has been discussed at the infosession. ?11. Goal is to lose at least 1.5-2lbs per week ?12. Goal to lose 10% of your weight before surgery, which is about 31lbs. Ultimate weight goal: 283lbs before surgery 13. Please follow the diet plan exactly without any change. If you don't like something about the plan or you feel hungry you need to communicate with me so I can help you revise the plan. You should not change the plan yourself. 14. To be scheduled for EGD due to history of GERD. The possibility of biopsies was discussed. Patient needs to avoid use of NSAIDs and aspirin for 1 week prior to EGD. Risks of perforation and bleeding was discussed with the patient. This will be an outpatient procedure with IV sedation. Orders: Orders Hemoglobin A1c Today E66.01 - Morbid (severe) obesity due to excess calories, I10 - Essential (primary) hypertension, J45.909 - Unspecified asthma, uncomplicated IRON PROFILE Today E66.01 - Morbid (severe) obesity due to excess calories, I10 - Essential (primary) hypertension, J45.909 - Unspecified asthma, uncomplicated Comprehensive Met. Panel Today E66.01 - Morbid (severe) obesity due to excess calories, I10 - Essential (primary) hypertension, J45.909 - Unspecified asthma, uncomplicated Vitamin B12 and Folate Today E66.01 - Morbid (severe) obesity due to excess calories, I10 - Essential (primary) hypertension, J45.909 - Unspecified asthma, uncomplicated Vitamin B1 Today E66.01 - Morbid (severe) obesity due to excess calories, I10 - Essential (primary) hypertension, J45.909 - Unspecified asthma, uncomplicated TSH reflex Free T4 Today E66.01 - Morbid (severe) obesity due to excess calories, I10 - Essential (primary) hypertension, J45.909 - Unspecified asthma, uncomplicated Insulin Today E66.01 - Morbid (severe) obesity due to excess calories, I10 - Essential (primary) hypertension, J45.909 - Unspecified asthma, uncomplicated Complete Blood Count Auto Diff Today E66.01 - Morbid (severe) obesity due to excess calories, I10 - Essential (primary) hypertension, J45.909 - Unspecified asthma, uncomplicated Lipid Panel Today E66.01 - Morbid (severe) obesity due to excess calories, I10 - Essential (primary) hypertension, J45.909 - Unspecified asthma, uncomplicated Zinc Today E66.01 - Morbid (severe) obesity due to excess calories, I10 - Essential (primary) hypertension, J45.909 - Unspecified asthma, uncomplicated C Reactive Protein Today E66.01 - Morbid (severe) obesity due to excess calories, I10 - Essential (primary) hypertension, J45.909 - Unspecified asthma, uncomplicated Vitamin A Today E66.01 - Morbid (severe) obesity due to excess calories, I10 - Essential (primary) hypertension, J45.909 - Unspecified asthma, uncomplicated Ferritin Today E66.01 - Morbid (severe) obesity due to excess calories, I10 - Essential (primary) hypertension, J45.909 - Unspecified asthma, uncomplicated Vitamin D 25-OH Total Today E66.01 - Morbid (severe) obesity due to excess calories, I10 - Essential (primary) hypertension, J45.909 - Unspecified asthma, uncomplicated ECG 12 lead EKG Today E66.01 - Morbid (severe) obesity due to excess calories, I10 - Essential (primary) hypertension, J45.909 - Unspecified asthma, uncomplicated Referrals Nutrition/Dietitian Referral E66.01 - Morbid (severe) obesity due to excess calories, I10 - Essential (primary) hypertension, J45.909 - Unspecified asthma, uncomplicated Behavioral Health Referral E66.01 - Morbid (severe) obesity due to excess calories, I10 - Essential (primary) hypertension, J45.909 - Unspecified asthma, uncomplicated
== END 2024-09-09 11:44 | disposition home or self-care (01) ==
LOC: HO.HBS 08:00
PROVIDERS: PCP Internal Medicine; Visit Provider Surgery
DX: E66.01 Morbid (severe) obesity due to excess calories (principal)
CPT/HCPCS: 99204

== ENCOUNTER → 2024-09-09 08:00 | Outpatient (BNVA) | payer OTHER, SELFPAY | PROVIDERS: PCP Internal Medicine; Visit Provider Surgery ==

== ENCOUNTER → 2024-10-01 10:11 | Outpatient (REF) | payer OTHER, SELFPAY ==
--- NOTE | 2024-10-01 10:21 | ECG_ITS ---
Test Reason : OBESITY Blood Pressure : / mmHG Vent. Rate : 090 BPM Atrial Rate : 090 BPM P-R Int : 152 ms QRS Dur : 076 ms QT Int : 370 ms P-R-T Axes : 020 041 036 degrees QTc Int : 452 ms Normal sinus rhythm Normal ECG No previous ECGs available Referred By: Greg Robison Electronically Signed By:LAY STRAUSS MD
[2024-10-01 10:44] LABS: MANUAL DIFF FLAG NO
[2024-10-01 11:24] LABS: Basophils Percent Auto 0.3 % (0-2); Eosinophils Absolute Auto 0.2 X10*3/uL (0.0-0.4); Eosinophils Percent Auto 1.5 % (0-4); Hematocrit 40.4 % (37.0-47.0); Hemoglobin 12.9 g/dl (12.0-16.0); Imm Gran Abs Auto 0.05 X10*3/uL (0.00-0.03); Imm Gran Pct Auto 0.4 % (0.0-0.4); Lymphocytes Percent Auto 17.7 % (20-40); Mean Corpuscular HGB Conc 31.9 g/dl (31.0-35.0); Mean Corpuscular Hemoglobin 26.6 pg (27.0-33.0); Mean Corpuscular Volume 83.3 fL (80.0-98.0); Monocytes Absolute Auto 0.5 X10*3/uL (0.1-1.2); Monocytes Percent Auto 4.7 % (2-11); Neutrophils Absolute Auto 8.5 x10*3/uL (2.0-8.3); Neutrophils Percent Auto 75.4 % (45-73); Platelet Count 219 X10*3/uL (160-400); Red Blood Count 4.85 X10*6/uL (4.20-5.50); Red Cell Distribution Width 15.1 % (11.0-16.0); White Blood Count 11.3 X10*3/uL (4.8-10.8)
[2024-10-01 11:34] LABS: Estimated Average Glucose 114 mg/dL; Hemoglobin A1C 129.4813 umol/L; Hemoglobin A1c % 5.6 % (<6.0); Total Hemoglobin (HGBA1C) 3402.4122 umol/L
[2024-10-01 12:21] LABS: Anion Gap 8 (12-20); Ferritin 42 ng/mL (10-122); TSH reflex Free T4 1.21 uIU/mL (0.32-4.0); Vitamin D 25-OH Total 14.4 ng/mL (>30)
[2024-10-01 12:26] LABS: Alanine Aminotransferase 25 U/L (0-31); Alkaline Phosphatase 85 U/L (39-117); Aspartate Amino Transferase 20 U/L (5-31); Bilirubin Total 0.3 mg/dL (0.0-1.0); Blood Urea Nitrogen 12 mg/dL (9-16); C Reactive Protein 2.23 mg/dL (< or = 0.50); Calcium 9.4 mg/dL (8.4-10.2); Carbon Dioxide 27 mmol/L (22-29); Chloride 107 mmol/L (96-108); Cholesterol 194 mg/dL (<200); Estimated Glomerular Filt Rate > 60; Glucose Random 102 mg/dL (60-115); HDL Cholesterol 44 mg/dL (>40); Iron 46 mcg/dL (30-160); LDL Cholesterol Calculated 118 mg/dL (<100); Percent Iron Saturation 14 % (15-50); Sodium 138 mmol/L (135-145); Total Iron Binding Capacity 336 mcg/dL (228-428); Total Protein 7.3 g/dL (6.5-8.0); Triglycerides 162 mg/dL (<150); Unsaturated Iron Binding 290 ug/dL
[2024-10-01 12:40] LABS: Folate 7.9 ng/mL (> or = 4.0); Vitamin B12 506 pg/mL (200-900)
[2024-10-01 13:01] LABS: Insulin 33 uU/mL (2-29)
[2024-10-04 13:34] LABS: Zinc 61 mcg/dL (60-130)
[2024-10-05 01:59] LABS: Vitamin A 42 mcg/dL (38-98)
[2024-10-08 17:54] LABS: Vitamin B1 14 nmol/L (8-30)
== END ==
LOC: HO.CARD 10:11
PROVIDERS: PCP Internal Medicine; Visit Provider Surgery
DX: Z13.1 Encounter for screening for diabetes mellitus (principal); E66.01 Morbid (severe) obesity due to excess calories; I10 Essential (primary) hypertension; J45.909 Unspecified asthma, uncomplicated
CPT/HCPCS: 36415; 80053; 80061; 82306; 82607; 82728; 82746; 83036; 83525; 83540; 84425; 84443; 84590; 84630; 85025; 86140; 93005

== ENCOUNTER → 2024-10-01 10:21 | Outpatient (BNV) | payer OTHER, SELFPAY | PROVIDERS: PCP Internal Medicine; Visit Provider Internal Medicine Cardiovascular Disease | DX: E66.9 Obesity, unspecified (principal) | CPT/HCPCS: 93010 ==

== ENCOUNTER 2024-10-16 07:16 | Day surgery (SDC) | payer OTHER, SELFPAY ==
--- NOTE | 2024-10-15 08:33 | HO.ANESPROP2 ---
Documented by User: Pascale Tejeda NP 10/15/24 08:33 HPI - Anesthesia Eval Consult details Narrative: 34yo F for Upper Endoscopy PMFSH Active Problems Active Problems: All Active Problems Eczema (Acute) Daytime somnolence (Acute) Depression with anxiety (Acute) PTSD (post-traumatic stress disorder) (Acute) Asthma (Acute) HTN (hypertension) (Acute) Pre-op evaluation (Acute) Morbid obesity (Acute) Past Medical History Medical History Gestational diabetes Qualitative platelet disorder HTN (hypertension) Asthma Family History Family History Mother Hypertension Heart problem Borderline personality disorder PTSD (post-traumatic stress disorder) Depression Anxiety Father Depression Anxiety Sister No problems noted. Sister Asthma OCD (obsessive compulsive disorder) Depression Anxiety Brother Anxiety Depression Tourette's Brother Anxiety Depression Surgical History Surgical History Hx of eye surgery Hx of knee surgery Hx of wisdom tooth extraction Hx of adenoidectomy Hx of tonsillectomy History of placement of ear tubes Social History Social History Alcohol intake: never Patient Tobacco Use Status: Never used Tobacco Use of substances other than those prescribed or required for medical reasons: No Are you DNR?: No Advance Directives: No Advance Directives Information Provided: Yes Advance Directives on File: No Nutrition Risks: No Nutritional Risk Meds Allergies Allergy/AdvReac Type Severity Reaction Status Date / Time adhesive Allergy Hives Verified 09/09/24 11:16 Penicillins Allergy Hives Verified 09/09/24 11:16 Sulfa (Sulfonamide Allergy Hives Verified 09/09/24 11:16 Antibiotics) Home Medications ?Medication ?Instructions ?Recorded ?Confirmed ?Last Taken ?Type albuterol sulfate 90 mcg/actuation 2 puff inhalation Q6H PRN sob 09/02/24 10/16/24 Unknown History aerosol inhaler labetalol 300 mg tablet 600 mg PO TID 09/02/24 10/16/24 Unknown History multivitamin 1 tab PO DAILY 09/02/24 10/16/24 Unknown History Assessment and Plan Assessment Anesthesia Assessment: Chart Reviewed Documented by User: Varsha Garcia MD 10/16/24 08:52 PMFSH Past Medical History Medical History Gestational diabetes Qualitative platelet disorder HTN (hypertension) Asthma Family History Family History Mother Hypertension Heart problem Borderline personality disorder PTSD (post-traumatic stress disorder) Depression Anxiety Father Depression Anxiety Sister No problems noted. Sister Asthma OCD (obsessive compulsive disorder) Depression Anxiety Brother Anxiety Depression Tourette's Brother Anxiety Depression Family history of problems with anesthesia: No Surgical History Surgical History Hx of eye surgery Hx of knee surgery Hx of wisdom tooth extraction Hx of adenoidectomy Hx of tonsillectomy History of placement of ear tubes History of Problems with Anesthesia: No Social History Social History Alcohol intake: never Patient Tobacco Use Status: Never used Tobacco Use of substances other than those prescribed or required for medical reasons: No Are you DNR?: No Advance Directives: No Advance Directives Information Provided: Yes Advance Directives on File: No Nutrition Risks: No Nutritional Risk Meds Allergies Allergy/AdvReac Type Severity Reaction Status Date / Time adhesive Allergy Hives Verified 09/09/24 11:16 Penicillins Allergy Hives Verified 09/09/24 11:16 Sulfa (Sulfonamide Allergy Hives Verified 09/09/24 11:16 Antibiotics) Home Medications ?Medication ?Instructions ?Recorded ?Confirmed ?Last Taken ?Type albuterol sulfate 90 mcg/actuation 2 puff inhalation Q6H PRN sob 09/02/24 10/16/24 Unknown History aerosol inhaler labetalol 300 mg tablet 600 mg PO TID 09/02/24 10/16/24 Unknown History multivitamin 1 tab PO DAILY 09/02/24 10/16/24 Unknown History Exam Height,Weight and Vital Signs: Height 5 ft 7 in Weight 143.902 kg Vital Signs Temp Pulse Resp BP Pulse Ox O2 Del Method 10/16/24 08:26 97.7 F 94 16 131/92 H 96 Room Air Pertinent Lab Results Pertinent Lab Results: Lab Results 10/16/24 Range/Units 08:11 Urine Test NEGATIVE (NEGATIVE) Airway Mallampati Class: III TM Dist: >3cm Neck ROM: Full Loose/Missing/Broken Teeth: No Heart: RRR Lungs: CTAB Assessment and Plan Assessment Anesthesia Assessment: Anesthesia Plan Discussed and Chart Reviewed Final Anesthetic Review Family History of Problems with Anesthesia: No History of Problems with Anesthesia: No NPO: Yes ASA Class: III Final Preanesthetic Review: No Changes in Pt Med Stat, Meds/Allgs Chart Reviewed, Consent Obtained/Reviewed and Anes Risks/Benef Reviewed Patient Risk: Intermediate Procedure Risk: Low Assessment/Block/Sedation in SS: Assess/Block/Sedation-SS Anesthetic Plan Anesthetic Plan: TIVA Disposition: Standard PACU
[2024-10-16 08:20] VITALS: BMI 49.7
[2024-10-16 08:26] VITALS: BP 131/92; PULSE 94; RESP 16; TEMP 36.5; O2SAT 96
[2024-10-16 08:30] LABS: UPreg QC Valid YES; Urine Pregnancy NEGATIVE (NEGATIVE)
[2024-10-16] MEDS: Lactated Ringers 1,000 ML 80 ML IVCONT (08:39)
--- NOTE | 2024-10-16 08:48 | P.HPSUR_ITS ---
Pre-Procedural Eval Section A - 24 Hr Update-Section A only Date of Service: 10/16/24 The patient is an INPATIENT: No The patient has been examined within 24 hours of the surgical procedure. The History & Physical has been completed within 30 days and I have reviewed it.: Yes Section B - Complete if H&P > 30 days Chief Complaint: Morbid (severe) obesity due to excess calories Relevant Family History (Specify if Yes): No Relevant Social History: None Present Medications: None Medical History: No relevant PMH History of Previous Operations: No relevant previous surgery Allergies: Allergies Allergy/AdvReac Type Severity Reaction Status Date / Time adhesive Allergy Hives Verified 09/09/24 11:16 Penicillins Allergy Hives Verified 09/09/24 11:16 Sulfa (Sulfonamide Allergy Hives Verified 09/09/24 11:16 Antibiotics) Review of Systems Sugical H&P ROS: Negative: Constitution, Cardiovascular, Respiratory, Neurological, Psychiatric, Hem-Onc, Allergic/Immunologic, Gastrointestinal, Genitourinary, Musculoskeletal, Integumentary, Endocrine and Eyes/Ears/Nose/Throat Exam Surgical H&P Exam: Normal: HEENT, Normal: Heart, Normal: Lungs, Normal: Extremi ties, Normal: Abdomen, Normal: Skin and Normal: Neurological Plan Diagnosis/Plan: Unchanged (EGD to assess stomach's anatomy. Risks of bleeding and perforation were discussed with the patient and she is in agreement with the plan.) I have reviewed the history and physical and performed a pertinent physical examination on my patient. No changes have occurred unless specified. Time Spent With Patient Time: Total time managing care of this patient today ____ minutes.
--- NOTE | 2024-10-16 08:51 | P.BOP_ITS ---
Brief Operative Note Date of Service: 10/16/24 Pre-op diagnosis: Morbid obesity Post-op diagnosis: same (Normal) Procedure: PROCEDURE DATE: 10/16/2024 PREOPERATIVE DIAGNOSIS: Morbid obesity POSTOPERATIVE DIAGNOSIS: ?Same as above. 1) Normal endoscopy PROCEDURE: Fralcakz-[id number]-btyuxttdvbts with biopsies Surgeon: ?Usman Robison M.D.. Ph.D. Product Test Engineer: None ? Anesthesia: IV sedation Estimated blood loss: ?Minimal FINDINGS AND PROCEDURE: ? OPERATIVE INDICATIONS: ?The patient is a 34 year old female known to me who is interested in bariatric surgery. Based on this information I recommended an upper endoscopy to evaluate the stomach's anatomy. Risks and complications of the surgery were discussed with the patient in advance particularly the possibility of perforation or bleeding that may require surgical intervention. The patient understood the risks and was in agreement with the plan. ? PROCEDURE: After informed consent was obtained by the patient, the patient was ?transferred to the Operating Room and was placed in the supine position.? After successful induction of IV sedation, a mouth block was inserted and the patient was placed in the left lateral decubitus position. An upper endoscopy was performed next, the oropharynx and esophagus appeared within the normal limits. There was no hiatal hernia. The z-line was smooth. Two biopsies were obtained from the distal esophagus 2-3 cm proximal to the GE junction and two additional biopsies from the GE junction. The stomach was entered and it appeared to be of normal size. There was no gastritis. There was no stricture or ulcer. A biopsy was obtained from the gastric fundus and antrum. No significant bleeding was noted from any of the biopsy sites. Retroflexion of the scope revealed a normal GE junction. The scope was then advanced into the duodenum which appeared to be normal as well. At that point the duodenum ?and the stomach were decompressed and the scope was withdrawn from the patient's mouth. The patient extubated and was transferred in stable condition to the Recovery Room for further care. I was present and performed all steps of the procedure. There were no residents to assist with this case. Usman Robison M.D., Ph.D. Surgeon: Greg Robison MD Anesthesia: MAC Was an Product Test Engineer used for this Procedure?: No Estimated blood loss (mL): 0 IV fluids (mL): 400 Urine output (mL): 0 (No [facility] to record output) Pathology: other (1) antrum x1, 2) fundus x1, 3) GE junction x2, 4) distal esophagus x2) Condition: stable Disposition: PACU
[2024-10-16 09:20] VITALS: BP 129/80; PULSE 114; RESP 18; TEMP 37; O2SAT 95
[2024-10-16 09:35] VITALS: BP 126/86; PULSE 104; RESP 18; TEMP 37; O2SAT 97
== END 2024-10-16 09:51 | disposition home or self-care (01) ==
PROVIDERS: Nurse Practitioner; Visit Provider Surgery
PROC: 0DJ08ZZ Inspection of Upper Intestinal Tract, Via Natural or Artificial Opening Endoscopic (ICD-10-PCS; CPT 43235; principal; 2024-10-16 08:50)
DX: E66.01 Morbid (severe) obesity due to excess calories (principal); Z68.42 Body mass index [BMI] 45.0-49.9, adult; I10 Essential (primary) hypertension; J45.909 Unspecified asthma, uncomplicated; D69.1 Qualitative platelet defects; L30.9 Dermatitis, unspecified; R40.0 Somnolence; F41.8 Other specified anxiety disorders; F43.10 Post-traumatic stress disorder, unspecified; Z79.899 Other long term (current) drug therapy; Z88.0 Allergy status to penicillin; Z88.2 Allergy status to sulfonamides; Z98.890 Other specified postprocedural states
CPT/HCPCS: 43239; 81025; 88305; 88313; 88342; J1596; J2003; J2250; J2704

== ENCOUNTER → 2024-10-16 07:16 | Outpatient (BNV) | payer OTHER, SELFPAY | PROVIDERS: Visit Provider Surgery | DX: E66.01 Morbid (severe) obesity due to excess calories (principal); E66.813 Obesity, class 3; Z68.42 Body mass index [BMI] 45.0-49.9, adult | CPT/HCPCS: 43239 ==

== ENCOUNTER 2024-10-21 10:36 | Outpatient (AMB) | payer OTHER, SELFPAY ==
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
== END 2024-10-22 08:34 | disposition home or self-care (01) ==
LOC: HO.HBST 10:36
PROVIDERS: Visit Provider Counselor Mental Health
DX: F43.10 Post-traumatic stress disorder, unspecified (principal)
CPT/HCPCS: 90791

== ENCOUNTER 2024-11-04 07:53 | Emergency (ER) | payer OTHER, SELFPAY ==
--- NOTE | ~2024-11-04 | US_ITS ---
EXAMINATION: US OBSTETRICAL ULTRASOUND CLINICAL INFORMATION: with right lower quadrant pain and question of ectopic COMPARISON: 12/19/2023 LMP: 10/22/2024. TECHNIQUE: Ultrasound of the maternal pelvis is performed using transabdominal and transvaginal transducers. Transvaginal imaging is performed due to inadequate visualization transabdominally. M-mode Doppler is also performed. FINDINGS: A gestational sac appears to be within the right fallopian tube with a 0.39 cm structure that appears to be a possible pole but without any detectable heartbeat. The uterus is unremarkable but there is a punctate echogenic focus seen within the endometrial cavity (image 39/97). Nabothian cysts are seen pelvis. MATERNAL ADNEXA: The right maternal ovary measures 5.3 x 3.4 x 3.3 cm. 2 cysts are present measuring 2.5 and 1.8 cm. The left maternal ovary measures 6.9 x 4.6 x 4.5 cm. 2 cysts are present measuring 3.8 cm and a 2.9 cm cyst with septations. There is some free fluid present seen adjacent to the left ovary. US/US OB pelvic and transvaginal IMPRESSION: No intrauterine gestation is seen. A punctate echogenic focus is seen in the endometrial cavity. In the region of what appears to be the right fallopian tube, a gestational sac appears to be present with a crown-rump length but no heart beat detected. Findings are concerning for an ectopic . Electronically signed by: Alok Tubbs MD 11/04/2024 01:11 PM [facility] [place]
[2024-11-04 07:58] VITALS: BP 177/102; PULSE 93; RESP 18; TEMP 36; O2SAT 100; BMI 50.1
[2024-11-04 08:57] LABS: MANUAL DIFF FLAG NO
[2024-11-04 08:59] LABS: Basophils Percent Auto 0.3 % (0-2); Eosinophils Absolute Auto 0.2 X10*3/uL (0.0-0.4); Eosinophils Percent Auto 1.4 % (0-4); Hematocrit 38.2 % (37.0-47.0); Hemoglobin 12.1 g/dl (12.0-16.0); Imm Gran Abs Auto 0.05 X10*3/uL (0.00-0.03); Imm Gran Pct Auto 0.4 % (0.0-0.4); Lymphocytes Absolute Auto 2.2 X10*3/uL (1.2-4.9); Lymphocytes Percent Auto 18.1 % (20-40); Mean Corpuscular HGB Conc 31.7 g/dl (31.0-35.0); Mean Corpuscular Volume 85.3 fL (80.0-98.0); Mean Platelet Volume 12.6 fL (9.4-12.3); Monocytes Absolute Auto 0.5 X10*3/uL (0.1-1.2); Monocytes Percent Auto 4.3 % (2-11); Neutrophils Absolute Auto 9.2 x10*3/uL (2.0-8.3); Neutrophils Percent Auto 75.5 % (45-73); Platelet Count 212 X10*3/uL (160-400); Red Blood Count 4.48 X10*6/uL (4.20-5.50); Red Cell Distribution Width 15.5 % (11.0-16.0); White Blood Count 12.2 X10*3/uL (4.8-10.8)
[2024-11-04 09:07] LABS: Appearance Urine Hazy; Color Urine RED; Glucose Urine UA Negative (Negative); Leukocyte Esterase Urine Trace (Negative); Nitrite Urine Negative (Negative); PH 5.5 (5.0-9.0); Specific Gravity - Urine 1.025 (1.005-1.025); UMIC TRIGGER UACC YES; Urine Blood Large (3+) (Negative); Urine Ketones Negative (Negative); Urine Protein Trace mg/dL (Neg-Trace)
[2024-11-04 09:16] LABS: Alanine Aminotransferase 15 U/L (0-31); Albumin Level 3.9 g/dL (3.5-5.0); Alkaline Phosphatase 68 U/L (39-117); Anion Gap 11 (12-20); Aspartate Amino Transferase 17 U/L (5-31); Bilirubin Total 0.4 mg/dL (0.0-1.0); Blood Urea Nitrogen 6 mg/dL (9-16); Calcium 8.6 mg/dL (8.4-10.2); Carbon Dioxide 25 mmol/L (22-29); Chloride 107 mmol/L (96-108); Creatinine Clr Calc Pharmacy 165.9; Estimated Glomerular Filt Rate > 60; Glucose Random 97 mg/dL (60-115); Lipase 18 U/L (8-78); Potassium 3.8 mmol/L (3.3-5.1); Sodium 139 mmol/L (135-145); Total Protein 7.1 g/dL (6.5-8.0)
[2024-11-04 09:20] LABS: Bacteria Urine Trace (None Seen); Hyaline Casts Urine 0-2 /LPF (0-2); RBC Urine >20 /HPF (0-2); UACC Culture Trigger YES
--- NOTE | 2024-11-04 09:46 | ED_ITS ---
HPI - Abdominal Pain General Chief Complaint: Abdominal Pain Stated Complaint: Abd pain Time Seen by Provider: 11/04/24 09:34 Source: patient, RN notes reviewed and old records reviewed Mode of arrival: ambulatory History of Present Illness ED Provider: Ирина Villalba PA-C HPI narrative: 34-year-old female with a past medical history of asthma, HTN, obesity, PTSD, depression, anxiety, eczema, presenting to the ED complaining of constant RLQ abdominal pain x3 days with associated nausea, bloating, nonbloody diarrhea, and hematuria noted this morning. Denies taking antihypertensives this morning. Denies vomiting, fever/chills. Denies vaginal bleeding or discharge Related Data Home Medications ?Medication ?Instructions ?Recorded ?Confirmed albuterol sulfate 90 mcg/actuation 2 puff inhalation Q6H PRN sob 09/02/24 10/16/24 aerosol inhaler labetalol 300 mg tablet 600 mg PO TID 09/02/24 10/16/24 multivitamin 1 tab PO DAILY 09/02/24 10/16/24 Allergies Allergy/AdvReac Type Severity Reaction Status Date / Time adhesive Allergy Hives Verified 11/04/24 07:59 Penicillins Allergy Hives Verified 11/04/24 07:59 Sulfa (Sulfonamide Allergy Hives Verified 11/04/24 07:59 Antibiotics) Review of Systems Review of Systems Yes all other systems are reviewed and are negative Constitutional: Reports as per HPI [facility] Past Medical History Attestation statement: The following information was validated with the patient. Source: old records reviewed Medical History Gestational diabetes Qualitative platelet disorder HTN (hypertension) Asthma Surgical History Hx of eye surgery Hx of knee surgery Hx of wisdom tooth extraction Hx of adenoidectomy Hx of tonsillectomy History of placement of ear tubes Family History Family History Mother Hypertension Heart problem Borderline personality disorder PTSD (post-traumatic stress disorder) Depression Anxiety Father Depression Anxiety Sister No problems noted. Sister Asthma OCD (obsessive compulsive disorder) Depression Anxiety Brother Anxiety Depression Tourette's Brother Anxiety Depression Social History Social History Alcohol intake: never Patient Tobacco Use Status: Never used Tobacco Advance Directives: No Advance Directives Information Provided: Yes Physical Exam ED Vital Signs: Vital Signs - 24 hr 11/04/24 07:58 11/04/24 10:00 11/04/24 12:02 Temperature 96.8 F Pulse Rate 93 85 81 Respiratory Rate 18 18 Blood Pressure 177/102 H 145/79 H 130/62 Pulse Oximetry 100 99 Oxygen Delivery Method Room Air Room Air BMI result Body Mass Index 50.1 Const General: cooperative, healthy appearing and no acute distress Orientation/consciousness: patient oriented x3 Limitations: no limitations HENMT Head: Yes normal to inspection and Yes atraumatic Ears: hearing grossly normal bilaterally General nose exam: Normal external nose present Face and sinus: Yes normal facial exam Eyes General: appearance normal, both eyes and all related structures EOM: EOMs intact bilaterally Neck Neck: Yes normal visual inspection and Yes no meningeal signs Resp Effort & Inspection: normal respiratory effort and no respiratory distress Auscultation: clear to auscultation bilaterally Cardio Rate: regular rate Heart sounds: S1 normal heart sound present and S2 normal heart sound present GI Inspection: Yes normal to inspection Palpation (GI): Soft to palpation, Tenderness to palpation present (GI) (diffusely ttp) in the RLQ; with no rebound tenderness, no guarding and not rigid General: Yes no CVA tenderness Back/Spine/Pelvis Back: no CVA tenderness Skin Rashes: no rashes Wounds: no wounds Neuro General: patient oriented x3, tone normal and no meningeal signs Cranial nerves: Yes CN's II-XII intact bilaterally Gait exam (Neuro): Normal gait present Extrem General: Yes normal to inspection Course Course Course Narrative: -leukocytosis of 12.2. Labs otherwise reassuring. -UA infected and with blood/RBCs. Urine positive >> CT AP canceled and changed to OB ultrasound to rule out ectopic > ABO and quant added. US contacted for stat imaging -on further conversation with patient she states she had a baby in May. LMP a few weeks ago. Not currently , is currently on oral contraceptives. -1050--hCG 1368 > ultrasound concerning for ectopic in the right fallopian tube with free fluid > radiology delayed (no official read) images reviewed with ED Attending Dr. Eli, reached out to [place] STAT read immediately after imaging was performed . 1202--[facility] transfer line called. We have no house registry rn coverage -spoke with [facility] OBGYN Dr. Ochoa who accepted patient in transfer to [facility]. patient is NPO 1317--US OB pelvic and transvaginal IMPRESSION: FINDINGS: A gestational sac appears to be within the right fallopian tube with a 0.39 cm structure that appears to be a possible pole but without any detectable heartbeat. The uterus is unremarkable but there is a punctate echogenic focus seen within the endometrial cavity (image 39/97). Nabothian cysts are seen pelvis. MATERNAL ADNEXA: The right maternal ovary measures 5.3 x 3.4 x 3.3 cm. 2 cysts are present measuring 2.5 and 1.8 cm. The left maternal ovary measures 6.9 x 4.6 x 4.5 cm. 2 cysts are present measuring 3.8 cm and a 2.9 cm cyst with septations. There is some free fluid present seen adjacent to the left ovary. US/US OB pelvic and transvaginal IMPRESSION: No intrauterine gestation is seen. A punctate echogenic focus is seen in the endometrial cavity. In the region of what appears to be the right fallopian tube, a gestational sac appears to be present with a crown-rump length but no heart beat detected. Findings are concerning for an ectopic . Electronically signed by: Alok Tubbs MD 11/04/2024 01:11 PM [facility] [place] > spoke with Dr. Ochoa about official ultrasound read -1337--BP soft 96/42 > 2L IVF running on pressure bag. Repeat 101/64. Additional repeat 116/51. There are NO ALS/sand miller crews available at this time. BLS crew in facility/at bedside and ready to transport patient. Medical Decision Making Medical Decision Making MDM Narrative: 34-year-old female with a past medical history of asthma, HTN, obesity, PTSD, depression, anxiety, eczema, presenting to the ED complaining of constant RLQ abdominal pain x3 days with associated nausea, bloating, nonbloody diarrhea, and hematuria noted this morning. On exam hypertensive, appears uncomfortable, NAD, nontoxic appearing, abdomen soft diffusely tender greatest in the RLQ, no CVAT. Concern for appendicitis vs renal stone vs /ectopic vs colitis/gastroenteritis. Lower suspicion for ovarian torsion/TOA or cholecystitis/lithiasis or pancreatitis at this time Plan: Labs, UA, CT AP, IVF, pain control, re-evaluate. Low suspicion for severe sepsis at this time Please refer to course for remaining clinical decision making, interpretation of labs/imaging results, and discussions with consultants and/or family members. Differential Diagnosis Differential Diagnoses: The differential diagnosis associated with the presentation includes As above Admission/Observation Consideration of admission/observation: Escalation of care including admission/observation considered Lab Data MDM Lab Attestation statement: I reviewed the patient's lab results. 11/04/24 08:49 11/04/24 08:49 Labs: Lab Results 11/04/24 11/04/24 11/04/24 Range/Units 08:49 08:53 10:46 WBC 12.2 H (4.8-10.8) X10*3/uL RBC 4.48 (4.20-5.50) X10*6/uL Hgb 12.1 (12.0-16.0) g/dl Hct 38.2 (37.0-47.0) % MCV 85.3 (80.0-98.0) fL MCH 27.0 (27.0-33.0) pg MCHC 31.7 (31.0-35.0) g/dl RDW 15.5 (11.0-16.0) % Plt Count 212 (160-400) X10*3/uL MPV 12.6 H (9.4-12.3) fL Immature Gran % (Auto) 0.4 (0.0-0.4) % Neut % (Auto) 75.5 H (45-73) % Lymph % (Auto) 18.1 L (20-40) % Divide % (Auto) 4.3 (2-11) % Eos % (Auto) 1.4 (0-4) % Baso % (Auto) 0.3 (0-2) % Lymph # (Auto) 2.2 (1.2-4.9) X10*3/uL Divide # (Auto) 0.5 (0.1-1.2) X10*3/uL Eos # (Auto) 0.2 (0.0-0.4) X10*3/uL Baso # (Auto) 0.0 (0.0-0.2) X10*3/uL Abs Immat Gran (auto) 0.05 H (0.00-0.03) X10*3/uL Absolute Neuts (auto) 9.2 H (2.0-8.3) x10*3/uL Absolute Nucleated RBC 0.000 (0.0-0.012) X10*3/uL Nucleated RBC % (auto) 0.0 (0.0-0.2) /100WBC Sodium 139 (135-145) mmol/L Potassium 3.8 (3.3-5.1) mmol/L Chloride 107 (96-108) mmol/L Carbon Dioxide 25 (22-29) mmol/L Anion Gap 11 L (12-20) BUN 6 L (9-16) mg/dL Creatinine 0.73 (0.5-1.4) mg/dL Estim Creat Clear Calc 165.9 Estimated GFR > 60 Random Glucose 97 (60-115) mg/dL Calcium 8.6 D (8.4-10.2) mg/dL Magnesium 1.8 (1.6-2.6) mg/dL Total Bilirubin 0.4 (0.0-1.0) mg/dL AST 17 (5-31) U/L ALT 15 (0-31) U/L Alkaline Phosphatase 68 (39-117) U/L Total Protein 7.1 (6.5-8.0) g/dL Albumin 3.9 (3.5-5.0) g/dL Lipase 18 (8-78) U/L Beta HCG, Quant 1368 mIU/mL Urine Color RED Urine Appearance Hazy Urine pH 5.5 (5.0-9.0) Ur Specific [place] 1.025 (1.005-1.025) Urine Protein Trace (Neg-Trace) mg/dL Urine Glucose (UA) Negative (Negative) mg/dL Urine Ketones Negative (Negative) mg/dL Urine Blood Large (3+) H (Negative) Urine Nitrite Negative (Negative) Ur Leukocyte Esterase Trace H (Negative) Urine RBC >20 H (0-2) /HPF Urine WBC 11-20 H (0-5) /HPF Ur Squamous Epith Cells 3-5 (0-2) /HPF Urine Bacteria Trace (None Seen) Hyaline Casts 0-2 (0-2) /LPF Urine Test POSITIVE H (NEGATIVE) Blood Type O Positive Antibody Screen NEGATIVE Independent Interpretation I performed an independent interpretation of an: CT Scan Radiology Impression Discussion of test interpretation with radiology: I have reviewed the radiologist's reading. External Record Review External record reviewed: Inpatient record, Office record, Outpatient record, Prior outpatient labs, Prior outpatient radiology, Primary care record and Outside ED record Tests considered The following testing was considered but not selected: As above Prescription Management I considered prescription management with: Pain Medication and Antibiotic Chronic Conditions Patient?s care impacted by: Other Social Determinants Patient?s care significantly limited by Social Determinants of Health including: Other Social Determinant of Health Medications Administered Discontinued Medications Generic Name Dose Route Start Last Admin Trade Name Freq PRN Reason Stop Dose Admin Sodium Chloride 1,000 mls @ 999 mls/hr 11/04/24 10:00 11/04/24 11:15 Ns IV 11/04/24 11:00 Infused .Q1H1M YU Infusion Sodium Chloride 1,000 mls @ 999 mls/hr 11/04/24 12:15 11/04/24 12:12 Ns IV 11/04/24 13:15 999 mls/hr .Q1H1M YU Administration Ketorolac Tromethamine 15 mg 11/04/24 09:46 11/04/24 10:04 Ketorolac Tromethamine 15 Mg/Ml Vial IVPUSH 11/04/24 09:47 15 mg ONCE ONE Administration Labetalol HCl 600 mg 11/04/24 09:48 11/04/24 10:00 Labetalol Hcl 200 Mg Tablet PO 11/04/24 09:49 600 mg ONCE ONE Administration Protocol Ondansetron HCl 4 mg 11/04/24 09:46 11/04/24 10:04 Ondansetron Hcl 4 Mg/2 Ml Vial IVPUSH 11/04/24 09:47 4 mg ONCE ONE Administration Critical Care Time Critical Care Time Critical Care Time: Yes Total Critical Care Time: 45 Attestation: I have personally provided critical care time exclusive of time spent on separately billable procedures. Time includes review of lab data, radiology results, discussion with consultants, and monitoring for potential decompensation. Intervention performed as documented. Discharge Plan Discharge Clinical Impression: Ectopic Patient Disposition: [facility] Transfer Details: [facility] Prescriptions: No Action multivitamin Tablet 1 tab PO DAILY albuterol sulfate 90 mcg/actuation HFA aerosol inhaler 2 puff inhalation Q6H PRN (Reason: sob) labetalol 300 mg tablet 600 mg PO TID Referrals: Xavier Ruff MD [Primary Care Provider] - Print Language: Korean
[2024-11-04 10:00] VITALS: BP 145/79; PULSE 85
[2024-11-04] MEDS: Labetalol HCL 200 MG TABLET 600 MG PO (10:00)
[2024-11-04] MEDS: 0.9 % Sodium Chloride 1,000 ML 999 ML IV ×2 (10:04→12:12)
[2024-11-04] MEDS: Ketorolac Tromethamine 15 MG/ML VIAL IVPUSH (10:04)
[2024-11-04] MEDS: ondansetron HCL 4 MG/2 ML VIAL IVPUSH (10:04)
[2024-11-04 10:10] LABS: Urine Pregnancy POSITIVE (NEGATIVE)
[2024-11-04 10:11] LABS: UPreg QC Valid YES
[2024-11-04 10:18] LABS: Magnesium 1.8 mg/dL (1.6-2.6)
[2024-11-04 10:40] LABS: HCG Quantitative 1368 mIU/mL
[2024-11-04 12:02] VITALS: BP 130/62; PULSE 81; RESP 18; O2SAT 99
[2024-11-04 14:13] VITALS: BP 116/58; PULSE 79; RESP 18; TEMP 36.9; O2SAT 100
== END 2024-11-04 14:14 | disposition short-term general hospital (02) ==
PROVIDERS: Physician Assistant; Emergency Provider Emergency Medicine; PCP Internal Medicine
DX: O00.90 Unspecified ectopic pregnancy without intrauterine pregnancy (principal)
CPT/HCPCS: 36415; 76801; 76817; 80053; 81001; 81025; 83690; 83735; 84702; 85025; 86850; 86900; 86901; 87086; 96361; 96374; 96375; 99285; J1885; J2405